=== PATIENT | male | born 1985 | race Caucasian/White ===

== ENCOUNTER → 2018-05-23 | Outpatient (CLI) | payer OTHER ==
--- NOTE | 2018-05-23 15:51 | PN ---
PROGRESS NOTE This is a 33-year-old male patient, a with known history of PTSD. The patient used to see Dr. Chen in the past and currently is under the care of Dr. Reed. The patient was diagnosed having obstructive sleep apnea with an AHI of 18.3, worse during REM sleep. This diagnosis was established by a sleep study that was done back in 05/2016. The patient was supposed to come in for a CPAP titration. However, he failed to do so. He is coming in after 2 years. He has lost some few pounds yet he has remained quite symptomatic. Currently going to school and studying IT work. He is also working in the [employer] business. Sometimes he struggles to stay awake. He does not fall asleep while driving unless he is driving long distances. Typically he says to drive around 5 to 10 minutes back and forth to work. He is going to bed around 11 p.m., waking up 7:00 am in the morning, very much tired and sleepy still. Clarkia score is at 8. No nocturnal chest pain. No nocturnal palpitations. No nocturnal heartburn. No edema in lower extremities. No other new onset medical problems since his last evaluation. He is known to have hypertension and he is currently on amlodipine and he is also taking olanzapine 5 mg for symptoms of PTSD. PAST MEDICAL HISTORY: Hypertension, PTSD, obesity and obstructive sleep apnea. SURGICAL HISTORY: Includes nasal surgery. DRUG ALLERGIES: PENICILLIN. OUTPATIENT MEDICATION LIST: Includes olanzapine 5 mg p.o. daily, Norvasc 5 mg p.o. daily. SOCIAL HISTORY: Nonsmoker. No history of alcohol. No history of IV drugs. REVIEW OF SYSTEMS: 12-point review of system was done. Positive findings are mentioned above in history of present illness. He has lost a few pounds. Used to weigh 329, currently is down to 314. Nevertheless he is still very much symptomatic regarding his obstructive sleep apnea. PHYSICAL EXAMINATION: BP 142/79, pulse 78, respirations 16, temperature 98.1, saturation 96% on room air. Height is 58 inches, weight is 314, Clarkia score is 8, BMI is 47.0. General appearance: Calm and comfortable. Head is atraumatic, normocephalic. NECK: Supple. There is no JVD. No goiter or neck masses. Mallampati class IV. LUNGS: Diminished breath sounds bilaterally, otherwise clear. HEART: Sounds regular rate and rhythm. Normal S1, S2. No S3. No murmurs. ABDOMEN: Soft, nontender. No organomegaly. EXTREMITIES: No edema. No cyanosis or clubbing. NEUROLOGIC: The patient is alert x3. No focal neurological deficits. PSYCHIATRIC: Negative for anxiety or depression. IMPRESSION: 1. Obstructive sleep apnea. Symptomatic. Based on the previous study from 2016, patient had an AHI of 18.3. 2. Hypersomnia, Clarkia score of 8. 3. Excessive fatigue likely secondary to obstructive sleep apnea. 4. Obesity, BMI of 47. 5. Loud snoring. 6. Hypertension. 7. Post traumatic stress disorder, currently on olanzapine. PLAN: 1. Proceed with CPAP titration regarding obstructive sleep apnea. 2. Encourage weight loss. 3. Implement good sleep hygiene measures. 4. See me back after completion of the CPAP titration for further advice and further adjustments. MMODL / IJN: [id number] /
== END | disposition home or self-care (01) ==
LOC: SLEEP 14:46
PROVIDERS: ATTEND Internal Medicine Critical Care Medicine
DX: Z53.9 Procedure and treatment not carried out, unspecified reason (principal)

== ENCOUNTER 2018-06-19 16:23 | Emergency (ER) | payer BC ==
[2018-06-19] MEDS ORDERED: KETOROLAC 30 MG/ML 1 ML VIAL IM STA (17:04)
--- NOTE | 2018-06-19 17:04 | ED ---
Back Pain HPI - General Chief Complaint: Back Pain/Injury Stated Complaint: Kidney pain Time Seen by Provider: 06/19/18 16:43 Source: patient Limitations: no limitations - History of Present Illness Initial Comments: 32-year-old male with past medical history of hypertension presented for chief complaint of one week of right-sided back pain. Patient states that last week when he initially began having the right-sided back pain he thought it was from moving heavy objects. The pain begins in the low to mid back radiating down towards the right leg. Patient had one episode of pink-colored urine on Tuesday which she was concerned for blood. Patient states that he has felt nauseated due to the pain. Patient states that the pain fluctuates in intensity , as worse in the morning and as the day progresses it gets better. He did note that he was lifting and twisting at work yesterday moving 10 pound objects which intensified the pain to 10 out of 10 sharp pain. Patient denies urgency, frequency, fever, chills, IV drug use, loss of bowel bladder control, urinary retention, groin pain, chest pain, shortness of breath. Denies hx of renal stones or cancer. Remainder of ROS (-). - Related Data Home Medications Medication Instructions Recorded Confirmed Ergocalciferol [Vitamin D2] 50,000 unit PO TU 06/19/18 06/19/18 OLANZapine [ZyPREXA] 5 mg PO HS 06/19/18 06/19/18 Omeprazole [PriLOSEC] 20 mg PO DAILY PRN 06/19/18 06/19/18 amLODIPine [Norvasc] 5 mg PO HS 06/19/18 06/19/18 Allergies Allergy/AdvReac Type Severity Reaction Status Date / Time Penicillins Allergy Rash/Hives Verified 06/19/18 16:38 Review of Systems ROS Statement: Those systems with pertinent positive or pertinent negative responses have been documented in the HPI. ROS Other: All systems not noted in ROS Statement are negative. Constitutional: Denies: fever, chills, night sweats Eyes: Denies: vision change ENT: Denies: ear pain, throat pain Respiratory: Denies: cough, dyspnea, wheezes, hemoptysis, stridor Cardiovascular: Denies: chest pain, palpitations, dyspnea on exertion Gastrointestinal: Reports: nausea (pt states he experienced nausea 1x due to the pain). Denies: abdominal pain, vomiting, diarrhea, constipation, hematemesis, melena Genitourinary: Reports: hematuria (pink colored urine on tuesday). Denies: urgency, dysuria, frequency, testicular pain Musculoskeletal: Reports: back pain (right sided mid-low back pain) Skin: Denies: rash Past Medical History Past Medical History: GERD/Reflux History of Any Multi-Drug Resistant Organisms: None Reported Additional Past Surgical History / Comment(s): Nasal sx. Past Psychological History: PTSD Smoking Status: Never smoker Past Alcohol Use History: Occasional Past Drug Use History: None Reported General Exam - General Exam Comments Initial Comments: General: The patient is awake and alert, in no distress, and does not appear acutely ill. Eye: Pupils are equal, round and reactive to light, extra-ocular movements are intact. No nystagmus. There is normal conjunctiva bilaterally. No signs of icterus. Ears, nose, mouth and throat: There are moist mucous membranes and no oral lesions. Neck: The neck is supple, there is no tenderness or JVD. Cardiovascular: There is a regular rate and rhythm. No murmur, rub or gallop is appreciated. Respiratory: Lungs are clear to auscultation, respirations are non-labored, breath sounds are equal. No wheezes, stridor, rales, or rhonchi. Gastrointestinal: Soft, non-distended, non-tender abdomen without masses or organomegaly noted. There is no rebound or guarding present. No CVA tenderness. Bowel sounds are unremarkable. Musculoskeletal: Normal inspection of the lumbar spine. Normal ROM at the lumbar spine with forward flexion, extension, lateral flexion and rotation, pt complains of pain with all movements. Strength 5/5 of the LE equally b/l. Sensation intact of the LE equally b/l. Radial and DP pulses equal bilaterally 2 +. (+) right SLR. Paravertbral tenderness of the lumbar spine R > L. Neurological: A&O x 3. CN II-XII intact, There are no obvious motor or sensory deficits. Coordination appears grossly intact. Speech is normal. Skin: Skin is warm and dry and no rashes or lesions are noted. Psychiatric: Cooperative, appropriate mood & affect, normal judgment. Limitations: no limitations Course Vital Signs 06/19/18 16:36 Temperature 98.2 F Pulse Rate 87 Respiratory 18 Rate Blood Pressure 152/84 O2 Sat by Pulse 98 Oximetry Medical Decision Making - Medical Decision Making 32yo with hx concerning for low back strain with sciatic vs kidney stone. PE as noted above. (+) right SLR, no signs concerning for cauda equina. No CVA tenderness. UA has calcium oxalate crystals concerning for kidney stone. CT and KUB (-). At this time At this time I feel pt pain is caused by kidney stone that has passed, as well as possible low back strain given location of pain, increase pain with movement and (+) SLR. Patient is no history of trauma to the back concerning for osseous injury. No IVDU, no hx cancer. Case discussed with Dr. Peña who agreed with impression and plan. Pt instructed to rest back, apply ice and heat to the area. In addition pt was given urology f/u regarding kidney stone. Pt agreed with plan, denied questions at this time. Return parameters discussed in detail. Pt discharged in stable condition. - Lab Data Result diagrams: 06/19/18 17:10 06/19/18 17:10 Lab Results 06/19/18 06/19/18 06/19/18 Range/Units 17:10 17:10 17:10 WBC 8.0 (3.8-10.6) k/uL RBC 4.70 (4.30-5.90) m/uL Hgb 14.0 (13.0-17.5) gm/dL Hct 40.9 (39.0-53.0) % MCV 86.9 (80.0-100.0) fL MCH 29.7 (25.0-35.0) pg MCHC 34.2 (31.0-37.0) g/dL RDW 12.5 (11.5-15.5) % Plt Count 247 (150-450) k/uL Neutrophils % 57 % Lymphocytes % 31 % Monocytes % 6 % Eosinophils % 3 % Basophils % 1 % Neutrophils # 4.6 (1.3-7.7) k/uL Lymphocytes # 2.5 (1.0-4.8) k/uL Monocytes # 0.5 (0-1.0) k/uL Eosinophils # 0.3 (0-0.7) k/uL Basophils # 0.1 (0-0.2) k/uL Sodium 141 (137-145) mmol/L Potassium 3.8 (3.5-5.1) mmol/L Chloride 107 (98-107) mmol/L Carbon Dioxide 26 (22-30) mmol/L Anion Gap 8 mmol/L BUN 13 (9-20) mg/dL Creatinine 0.76 (0.66-1.25) mg/dL Est GFR (CKD-EPI)AfAm >90 (>60 ml/min/1.73 sqM) Est GFR (CKD-EPI)NonAf >90 (>60 ml/min/1.73 sqM) Glucose 88 (74-99) mg/dL Calcium 9.2 (8.4-10.2) mg/dL Total Bilirubin 0.6 (0.2-1.3) mg/dL AST 40 (17-59) U/L ALT 99 H (21-72) U/L Alkaline Phosphatase 81 (38-126) U/L Total Protein 7.5 (6.3-8.2) g/dL Albumin 4.1 (3.5-5.0) g/dL Urine Color Yellow Urine Appearance Cloudy (Clear) Urine pH 8.0 (5.0-8.0) Ur Specific [place] 1.019 (1.001-1.035) Urine Protein Trace H (Negative) Urine Glucose (UA) Negative (Negative) Urine Ketones Negative (Negative) Urine Blood Negative (Negative) Urine Nitrite Negative (Negative) Urine Bilirubin Negative (Negative) Urine Urobilinogen 3.0 (<2.0) mg/dL Ur Leukocyte Esterase Negative (Negative) Ur Squamous Epith Cells <1 (0-4) /hpf Calcium Oxalate Crystal Rare H (None) /hpf Amorphous Sediment Rare H (None) /hpf Urine Bacteria Occasional H (None) /hpf Disposition Clinical Impression: Flank pain, Low back strain Disposition: HOME SELF-CARE Condition: Good Instructions: Kidney Stones (ED) Additional Instructions: Please use medication as discussed. Please follow-up with family doctor in the next 2 days. Please follow-up with urology in next week. Please return to emergency room if the symptoms increase or worsen or for any other concerns. Is patient prescribed a controlled substance at d/c from ED?: No Referrals: Fatmata Reed DO [Primary Care Provider] - 1-2 days Nelson Woodson MD [STAFF PHYSICIAN] - 1-2 days Time of Disposition: 19:09
[2018-06-19] MEDS ORDERED: KETOROLAC 30 MG/ML 1 ML VIAL IVP STA (17:27)
[2018-06-19 17:32] LABS: Basophils # (A) 0.1 k/uL (0-0.2); Basophils % (A) 1 %; Eosinophils # (A) 0.3 k/uL (0-0.7); Eosinophils % (A) 3 %; HCT 40.9 % (39.0-53.0); Lymphocytes # (A) 2.5 k/uL (1.0-4.8); Lymphocytes % (A) 31 %; MCH 29.7 pg (25.0-35.0); MCHC 34.2 g/dL (31.0-37.0); MCV 86.9 fL (80.0-100.0); Monocytes # (A) 0.5 k/uL (0-1.0); Monocytes % (A) 6 %; Neutrophils # (A) 4.6 k/uL (1.3-7.7); Neutrophils % (A) 57 %; Platelet Count 247 k/uL (150-450); RDW 12.5 % (11.5-15.5)
[2018-06-19 17:46] LABS: ALT 99 U/L (21-72); AST 40 U/L (17-59); Albumin 4.1 g/dL (3.5-5.0); Alkaline Phosphatase 81 U/L (38-126); Anion Gap 8 mmol/L; Blood Urea Nitrogen 13 mg/dL (9-20); Calcium 9.2 mg/dL (8.4-10.2); Carbon Dioxide 26 mmol/L (22-30); Chloride 107 mmol/L (98-107); Glucose 88 mg/dL (74-99); Potassium 3.8 mmol/L (3.5-5.1); Sodium 141 mmol/L (137-145); Total Bilirubin 0.6 mg/dL (0.2-1.3); Total Protein 7.5 g/dL (6.3-8.2)
[2018-06-19 17:48] LABS: Amorphous Sediment,Urine Rare /hpf; Appearance,Urine Cloudy (Clear); Bacteria,Urine Occasional /hpf; Bilirubin,Urine Negative (Negative); Blood,Urine Negative (Negative); Calcium Oxalate Crystals,Urine Rare /hpf; Color,Urine Yellow; Glucose,Urine (UA) Negative (Negative); Ketones,Urine Negative (Negative); Leukocyte Esterase,Urine Negative (Negative); Nitrite,Urine Negative (Negative); Protein,Urine Trace (Negative); Specific Gravity,Urine 1.019 (1.001-1.035); Squamous Epithelial Cell,Urine <1 /hpf (0-4)
--- NOTE | 2018-06-19 17:49 | XR ---
EXAMINATION TYPE: XR KUB DATE OF EXAM: 06/19/2018 COMPARISON: 12/02/2012 HISTORY: Right flank pain TECHNIQUE: 2 views upright FINDINGS: Lung bases are clear. Bowel gas pattern is normal. There is no sign of intestinal obstructi on or pneumoperitoneum. Fecal pattern is normal. There are no pathologic calcifications. There is sli ght lumbar levoscoliosis. IMPRESSION: Nonacute abdomen. No change.
--- NOTE | 2018-06-19 19:00 | CT ---
EXAMINATION TYPE: CT abdomen pelvis wo con DATE OF EXAM: 06/19/2018 COMPARISON: 12/03/2012 HISTORY: RIGHT FLANK PAIN CT DLP: 1383 mGycm Automated exposure control for dose reduction was used. TECHNIQUE: Helical acquisition of images was performed from the lung bases through the pelvis. FINDINGS: Lung bases are clear. There is no pleural effusion. There is no pericardial effusion. Liver spleen pa ncreas gallbladder appear normal. Bile ducts are not dilated. Stomach appears normal. There is no adrenal mass. Kidneys have normal size and contour. There is no hydronephrosis. Ureters a re not dilated. There is no retroperitoneal adenopathy. There is no mesenteric adenopathy or edema. T here is no inguinal hernia. Bladder distends smoothly. There is no evidence of a pelvic mass. Appendi x appears normal. I see no intestinal wall thickening. There are no dilated loops. Lumbar spine is intact. The bony pel vis appears intact. IMPRESSION: NEGATIVE CT SCAN OF THE ABDOMEN AND PELVIS. NO RENAL STONE OR OBSTRUCTION. NORMAL APPENDIX.
[2018-06-19 19:23] VITALS: BP 150/74; PULSE 91; RESP 20; TEMP 97.4
== END 2018-06-19 19:23 | disposition home or self-care (01) ==
LOC: EC 16:23
DX: S39.012A Strain of muscle, fascia and tendon of lower back, initial encounter (principal); R10.9 Unspecified abdominal pain; R11.0 Nausea; I10 Essential (primary) hypertension; K21.9 Gastro-esophageal reflux disease without esophagitis; Z79.899 Other long term (current) drug therapy; Z88.0 Allergy status to penicillin; X50.0XXA Overexertion from strenuous movement or load, initial encounter; X50.1XXA Overexertion from prolonged static or awkward postures, initial encounter; Y92.69 Other specified industrial and construction area as the place of occurrence of the external cause; Y99.0 Civilian activity done for income or pay
CPT/HCPCS: 36415; 80053; 85025; 81001; 74018; 74176; 99284; 96374; J1885

== ENCOUNTER → 2018-09-05 | Outpatient (CLI) | payer BC ==
--- NOTE | 2018-09-05 17:51 | PN ---
PROGRESS NOTE Clemente is doing extremely well and is coming in today for a compliancy check. The patient was diagnosed having obstructive sleep apnea AHI of 12 consistent with moderately severe disease and was given CPAP at a pressure of 10 cm of water. He is sleeping much better. He is using his CPAP every night without any interruption. His sleep quality is improved and he is waking up alert and refreshed during the day. No complaints whatsoever. He is using an Megan full face mask. He has gained about 5 pounds since his last evaluation. On today's compliance check, the patient is averaging around 8.1 hours of CPAP use per night and his CPAP use for more than 4 hours 95%. Leak is around 12 L/minute. AHI is down to 1.0. His [place] score is down to 2. No complaints whatsoever. REVIEW OF SYSTEMS: 12-point review of system was done. Positive findings are mentioned above in the history of present illness. He is gaining weight. He has gained around 5 pounds. No hypersomnia or sleepiness. No falling asleep while driving. No sleep paralysis. No hallucinations. No cataplexy. No anxiety. No depression. No panic attacks. No nocturnal heartburn, shortness of breath or chest pain. PHYSICAL EXAMINATION: VITAL SIGNS: BP is 126/80, pulse 74, respirations 18, temperature 97.4, saturation 97% on room air. Weight is 234. GENERAL APPEARANCE: Calm, comfortable, obese. HEENT: Head is atraumatic, normocephalic. NECK: Supple. No JVD. No goiter or neck masses. LUNGS: Diminished otherwise clear. HEART: Sounds regular rhythm. Normal S1, S2. No S3, S4, no murmurs. ABDOMEN: Soft, nontender. No organomegaly. EXTREMITIES: No edema. No cyanosis or clubbing. NEUROLOGIC: Alert and oriented x3. No focal neurological deficits. PSYCHIATRIC: Negative for anxiety or depression. IMPRESSION: 1. Obstructive sleep apnea symptomatic moderate in severity. AHI of 18, currently on CPAP pressure of 10. 2. Hypersomnia, recovered. 3. Snoring recovered. 4. Obesity with interval weight gain. Current BMI is 50.4. PLAN: 1. Encourage weight loss. 2. Continue CPAP pressure of 10 cm of water. 3. Use Megan View full-face mask. I also offered this patient a Enabled EmploymentWear full face mask that can be used in alternation with the Megan View and DreamWear fullface mask is of a small size. 4. Implement good sleep hygiene measures. 5. See me back in a year's time in follow up. Treatment is successful and the patient is benefitting from the treatment. MMELIZABETH / IJN: [id number] /
== END | disposition home or self-care (01) ==
LOC: SLEEP 16:46
PROVIDERS: ATTEND Internal Medicine Critical Care Medicine
DX: G47.33 Obstructive sleep apnea (adult) (pediatric) (principal); E66.9 Obesity, unspecified; Z68.43 Body mass index [BMI] 50.0-59.9, adult; Z99.89 Dependence on other enabling machines and devices

== ENCOUNTER 2019-06-23 18:49 | Emergency (ER) | payer BC ==
[2019-06-23 18:54] VITALS: BP 136/84; PULSE 72; RESP 18; TEMP 98.3
--- NOTE | 2019-06-23 19:17 | XR ---
EXAMINATION TYPE: XR hand complete RT DATE OF EXAM: 06/23/2019 COMPARISON: 09/08/2013 HISTORY: Pain, injury punching door TECHNIQUE: Right hand is examined in 3 projections. FINDINGS: There is a transverse fracture of the mid diaphyseal fifth metacarpal. There is anterior an gulation of the distal fracture fragment. Soft tissue swelling is present. Remaining osseous structures are intact. Joint spaces are preserved. IMPRESSION: 1. Mid diaphyseal fifth metacarpal fracture.
--- NOTE | 2019-06-23 19:34 | ED ---
Upper Extremity HPI - General Chief Complaint: Extremity Injury, Upper Stated Complaint: rt hand injury Time Seen by Provider: 06/23/19 18:55 Source: patient Mode of arrival: ambulatory Limitations: no limitations - History of Present Illness Initial Comments: Patient is a 33-year-old male presenting to the emergency Department with complaints of right hand pain after accidentally hitting a wall. Patient states he was playing with his family in mid-December hitting them when they moved and he had a wall instead. Patient states he has fractured his right fifth metacarpal for approximately 10 years ago. Patient states the pain feels similar. Patient is having swelling over the area. He is controlled at this time. Patient has no other complaints at this time. Patient denies fever or chills. Upon arrival to ER, vital signs are stable. - Related Data Home Medications Medication Instructions Recorded Confirmed Ergocalciferol [Vitamin D2] 50,000 unit PO TU 06/19/18 07/05/18 OLANZapine [ZyPREXA] 5 mg PO HS 06/19/18 07/05/18 Omeprazole [PriLOSEC] 20 mg PO DAILY PRN 06/19/18 07/05/18 amLODIPine [Norvasc] 10 mg PO HS 07/05/18 07/05/18 Allergies Allergy/AdvReac Type Severity Reaction Status Date / Time Penicillins Allergy Rash/Hives Verified 06/23/19 18:54 Review of Systems ROS Statement: Those systems with pertinent positive or pertinent negative responses have been documented in the HPI. ROS Other: All systems not noted in ROS Statement are negative. Past Medical History Past Medical History: GERD/Reflux, Hypertension, Musculoskeletal Disorder, Sleep Apnea/CPAP/BIPAP Additional Past Medical History / Comment(s): Blood in stools; uses CPAP; Back pain History of Any Multi-Drug Resistant Organisms: None Reported Past Surgical History: No Surgical Hx Reported Additional Past Surgical History / Comment(s): Nasal sx.; wisdom teeth Past Anesthesia/Blood Transfusion Reactions: No Reported Reaction Past Psychological History: PTSD Smoking Status: Never smoker Past Alcohol Use History: Rare Past Drug Use History: None Reported - Past Family History Mother Family Medical History: No Reported History General Exam - General Exam Comments Initial Comments: GENERAL: Well-appearing, well-nourished and in no acute distress. HEAD: Atraumatic, normocephalic. EYES: Pupils equal round and reactive to light, extraocular movements intact, sclera anicteric, conjunctiva are normal. NECK: Normal range of motion, supple without lymphadenopathy or JVD. LUNGS: Breath sounds clear to auscultation bilaterally and equal. No wheezes rales or rhonchi. HEART: Regular rate and rhythm without murmurs, rubs or gallops. EXTREMITIES: Patient has pain with palpation over the fifth metacarpal on the right hand, there is obvious swelling over the same area. Patient has full range of motion of the right hand and fingers. Patient is neurovascular intact. PSYCH: Normal mood, normal affect. SKIN: Warm, Dry, normal turgor, no rashes or lesions noted. Limitations: no limitations Course Vital Signs 06/23/19 18:51 Temperature 98.3 F Pulse Rate 72 Respiratory 18 Rate Blood Pressure 136/84 O2 Sat by Pulse 96 Oximetry Procedures - Orthopedic Splinting/Casting Injury #1 Side: right Upper Extremity Injury Location: short arm, hand Medical Decision Making - Medical Decision Making Patient is a 33-year-old male presenting to emergency Department with complaints of right hand pain after accidentally hitting a wall. X-rays reveal a mid diaphyseal fifth metacarpal fracture with slight anterior angulation of the distal fracture fragment. Patient was placed in a short arm splint and will follow up with orthopedics on Tuesday. Patient is in agreement with this plan of care. Patient is stable for discharge at this time. Case discussed with Dr. Tijerina. Disposition Clinical Impression: Fracture of fifth metacarpal bone of right hand Disposition: HOME SELF-CARE Condition: Stable Instructions (If sedation given, give patient instructions): Boxer Fracture (ED) Additional Instructions: Please return to the Emergency Department if symptoms worsen or any other concerns. Keep splint place until follow-up with orthopedics. Take Tylenol or Motrin for pain relief. May use ice over the hand as well. Is patient prescribed a controlled substance at d/c from ED?: No Referrals: Fatmata Reed DO [Primary Care Provider] - 1-2 days Grzegorz Pradhan MD [Medical Doctor] - 1-2 days
== END 2019-06-23 19:42 | disposition home or self-care (01) ==
LOC: EC 18:49
DX: S62.396A Other fracture of fifth metacarpal bone, right hand, initial encounter for closed fracture (principal); F43.10 Post-traumatic stress disorder, unspecified; K21.9 Gastro-esophageal reflux disease without esophagitis; I10 Essential (primary) hypertension; G47.30 Sleep apnea, unspecified; Z79.899 Other long term (current) drug therapy; Z88.0 Allergy status to penicillin; Z99.89 Dependence on other enabling machines and devices; W22.09XA Striking against other stationary object, initial encounter; Y93.89 Activity, other specified; Y92.009 Unspecified place in unspecified non-institutional (private) residence as the place of occurrence of the external cause
CPT/HCPCS: 29125; 99283

== ENCOUNTER → 2019-09-18 | Outpatient (CLI) | payer BC ==
--- NOTE | 2019-09-18 18:05 | PN ---
PROGRESS NOTE Clemente is 34, coming in for an annual check regarding obstructive sleep apnea. He has mild REBECCA with an AHI of 12 and he is on a CPAP pressure of 12. Doing well. No specific complaints. Utilizing his machine all the time. I had offered this patient a DreamWear [id number] mask and he found the mask very comfortable and he is willing to continue the same mask interface for the time being. No significant weight loss or weight gain. His body weight is up by only a few pounds since his last evaluation. He continues to wear his CPAP every night. He is compliant. He is averaging more than 4 hours. He is waking up refreshed and alert during the day. No other new-onset medical problems or comorbidities, and his condition has been essentially stable. MEDICATION: Includes Synthroid 100 mcg p.o. daily, Norvasc 10 mg p.o. daily, olanzapine 5 mg p.o. at bedtime. PHYSICAL EXAMINATION: VITAL SIGNS: BP is 121/73, pulse 82, respiratory rate 16, temperature 98.0, saturation 95% on room air. Height is 5 feet 9 inches and weight is 339. BMI is 50. GENERAL APPEARANCE: Calm, comfortable. HEAD: Atraumatic, normocephalic. NECK: Supple. No JVD. No goiter or neck masses. Mallampati class IV. LUNGS: Clear to auscultation. HEART: Heart sounds are regular rate and rhythm. Normal S1, S2. No S3, S4. No murmurs. ABDOMEN: Soft, nontender. No organomegaly. EXTREMITIES: No edema. No cyanosis or clubbing. IMPRESSION: 1. Obstructive sleep apnea with apnea/hypopnea index of 12, successfully treated with a CPAP pressure of 10 cm of water. 2. Hypersomnia, improved. 3. Obesity, stable, with a body mass index of 50. PLAN: 1. Continue CPAP at the same level of pressure. 2. Renew the patient's DreamWear full-face mask, medium size. 3. Encourage weight loss. 4. Treatment is successful. See me back in a year's time in followup, earlier if needed. No other changes from my standpoint on today's evaluation. MMODL / IJN: [id number] /
== END | disposition home or self-care (01) ==
LOC: SLEEP 15:28
PROVIDERS: ATTEND Internal Medicine Critical Care Medicine
DX: G47.33 Obstructive sleep apnea (adult) (pediatric) (principal); E66.9 Obesity, unspecified; Z68.43 Body mass index [BMI] 50.0-59.9, adult; Z99.89 Dependence on other enabling machines and devices; Z79.899 Other long term (current) drug therapy

== ENCOUNTER → 2020-10-29 | Outpatient (CLI) | payer BC ==
[2020-10-29 16:05] VITALS: BP 167/98; PULSE 88; RESP 18; TEMP 97.9; BMI 51.8
--- NOTE | 2020-10-29 16:14 | P.HPBAR ---
Bariatric H&P - History & Physicial H&P Date: 10/29/20 History & Physicial: Visit/CC: initial visit Patient initial contact: Initial weight: Initial weight in pounds: Height: 5 ft 9 in Initial BMI: Last weight: Current weight: 159.302 kg Current weight in pounds: 351.20 Current BMI: 51.8 [place] body weight (based on NIH guidelines): 72.575 kg Excess body weight loss: The patient is a 35 year-old M who presents for Bariatric Assessment. He is looking to bariatric procedure. Highest weight is present. Has mother with trouble with weight. No stomach or esophageal cancer. In the past he had heart burn up to 3 years. He still has his gallbladder. He uses CPAP machine. No surg eries to the abdomen. He had a scope check many years ago. He has lower back pain. He was in the . He reports of osteoarthritis of his knees. He is on disability. No easy bruising. Past Medical History Past Medical History: GERD/Reflux, Hypertension, Musculoskeletal Disorder, Sleep Apnea/CPAP/BIPAP Additional Past Medical History / Comment(s): Blood in stools; uses CPAP; Back pain History of Any Multi-Drug Resistant Organisms: None Reported Past Surgical History: No Surgical Hx Reported Additional Past Surgical History / Comment(s): Nasal sx.; wisdom teeth Past Anesthesia/Blood Transfusion Reactions: No Reported Reaction Past Psychological History: PTSD Smoking Status: Never smoker Past Alcohol Use History: Rare Past Drug Use History: None Reported - Past Family History Mother Family Medical History: No Reported History Surgical - Exam Vital Signs Temp Pulse Resp BP 97.9 F 88 18 167/98 10/29/20 15:56 10/29/20 15:56 10/29/20 15:56 10/29/20 15:56 Bariatric Checklist Checklist: Plan: Checklist: EGD: 1. Hiatal hernia: 2. H. Pylori: HgbA1c: Vitamin D: Smoking: Never smoker Primary care physician referral: Dr. Fatmata Reed Psychiatry clearance: Cardiology clearance: Sleep study: Diet journal: VTE risk score: VTE risk level: Rehab needs at discharge:
== END ==
LOC: BARWHC3 15:33
PROVIDERS: ATTEND Surgery Plastic and Reconstructive Surgery
DX: E66.01 Morbid (severe) obesity due to excess calories (principal); Z68.43 Body mass index [BMI] 50.0-59.9, adult; K21.9 Gastro-esophageal reflux disease without esophagitis; I10 Essential (primary) hypertension
CPT/HCPCS: 99211

== ENCOUNTER → 2020-11-11 | Outpatient (CLI) | payer BC ==
[2020-11-12 00:54] LABS: HCT 42.1 % (39.6-50.0); HGB 14.4 g/dL (13.0-17.0); MCH 30.3 pg (27.0-32.0); MCHC 34.2 g/dL (32.0-37.0); MCV 88.4 fL (80.0-97.0); Platelet Count 214 X 10*3/uL (140-440); RBC 4.76 X 10*6/uL (4.40-5.60); RDW 12.6 % (11.5-14.5); WBC 7.21 X 10*3/uL (4.50-10.00)
[2020-11-12 03:06] LABS: INR 0.94 (0.90-1.11); Partial Thromboplastin Time 25.9 sec (23.5-31.0); Prothrombin Time 10.3 sec (9.9-11.9)
[2020-11-12 09:19] LABS: Folate, Serum 9.1 ng/mL
[2020-11-12 09:29] LABS: % Iron Saturation 18.71 (15.00-50.00); African American GFR (CKD) 127.8 (60.0-200.0); Albumin 4.6 g/dL (3.80-4.90); Albumin/Globulin Ratio 1.64 (1.60-3.17); Anion Gap 10.8 mmol/L (4.00-12.00); BUN/Creat Ratio 12.22 Ratio (12.00-20.00); Calcium 9.8 mg/dL (8.7-10.3); Carbon Dioxide 25.2 mmol/L (21.6-31.8); Chol/HDL Ratio 4.73; Ferritin 321.3 ng/mL (22.0-322.0); Globulin 2.8 g/dL (1.6-3.3); LDL Cholesterol,Calculated 108.6 mg/dL (0.0-131.0); Magnesium 1.7 mg/dL (1.5-2.4); Non-African American GFR(CKD) 110.3 (60.0-200.0); Phosphorus 3.4 mg/dL (2.4-5.1); Potassium 3.8 mmol/L (3.5-5.5); Total Bilirubin 0.4 mg/dL (0.3-1.2); Total Protein 7.4 g/dL (6.2-8.2); VLDL Calculation 55.4 mg/dL (5.00-40.00)
[2020-11-12 14:17] LABS: Zinc, Serum 48 ug/dL (60-130)
[2020-11-13 08:06] LABS: Vitamin A 40 ug/dL (38-106)
[2020-11-14 01:13] LABS: Selenium 134 mcg/L (63-160)
[2020-11-14 11:03] LABS: Vit B1(Thiamine) 69 ug/L (38-122)
== END | disposition home or self-care (01) ==
LOC: LABWHC1 15:35
PROVIDERS: ATTEND Surgery Plastic and Reconstructive Surgery
DX: K74.1 Hepatic sclerosis (principal); K90.89 Other intestinal malabsorption; E55.9 Vitamin D deficiency, unspecified; N19 Unspecified kidney failure; K50.90 Crohn's disease, unspecified, without complications; D50.8 Other iron deficiency anemias; E89.1 Postprocedural hypoinsulinemia; E66.01 Morbid (severe) obesity due to excess calories
CPT/HCPCS: 36415; 80053; 80061; 82306; 82525; 82607; 82728; 82746; 83036; 83540; 83550; 83735; 83970; 84100; 84134; 84255; 84425; 84443; 84590; 84630; 85027; 85610; 85730; 93005

== ENCOUNTER → 2020-11-18 | Outpatient (CLI) | payer BC | END | disposition home or self-care (01) | LOC: LABWHC1 13:30 | PROVIDERS: ATTEND Surgery Plastic and Reconstructive Surgery | DX: K90.89 Other intestinal malabsorption (principal); E44.0 Moderate protein-calorie malnutrition; D50.8 Other iron deficiency anemias; E55.9 Vitamin D deficiency, unspecified; K74.1 Hepatic sclerosis; N19 Unspecified kidney failure | CPT/HCPCS: 93005 ==

== ENCOUNTER → 2020-12-08 | Day surgery (SDC) | payer BC ==
[2020-12-03 14:56] VITALS: BMI 51.8
[~2020-12-08] MED LIST: KETAMINE 10 MG/ML 20 ML VIAL ONE; LACTATED RINGERS 1,000 ML IV SCH; LIDOCAINE 1% (10MG/ML) FOR IV START INTRADERMA PRN; LIDOCAINE 1% INJ 10MG/ML (20 ML MDV) ONE; MIDAZOLAM 2 MG/2 ML VIAL ONE; PROPOFOL 10 MG/ML 20 ML VIAL IV ONE
[2020-12-08 06:59] VITALS: RESP 18; TEMP 97
--- NOTE | 2020-12-08 07:40 | P.GSHP ---
History of Present Illness H&P Date: 12/08/20 CHIEF COMPLAINT: GERD HISTORY OF PRESENT ILLNESS: The patient is a 35-year-old male who presents reports gastroesophageal reflux disease. Upper endoscopy was offered for further evaluation and management. PAST MEDICAL HISTORY: Please see list. PAST SURGICAL HISTORY: Please see list. MEDICATIONS: Please see list. ALLERGIES: Please see list. SOCIAL HISTORY: No illicit drug use FAMILY HISTORY: No reports of Crohn disease or ulcerative colitis. REVIEW OF ORGAN SYSTEMS: CONSTITUTIONAL: No reports of fevers or chills. GI: Denies any blood in stools or constipation. PHYSICAL EXAM: VITAL SIGNS: Stable GENERAL: Well-developed and pleasant in no acute distress. HEENT: No scleral icterus. Extraocular movements grossly intact. Moist buccal mucosa. NECK: Supple without lymphadenopathy. CHEST: Unlabored respirations. Equal bilateral excursions. CARDIOVASCULAR: Regular rate and rhythm. Distal 2+ pulses. ABDOMEN: Soft, nondistended. MUSCULOSKELETAL: No clubbing, cyanosis, or edema. ASSESSMENT: 1. Gastroesophageal reflux disease PLAN: 1. Recommend proceeding with an upper endoscopy Past Medical History Past Medical History: GERD/Reflux, Hypertension, Musculoskeletal Disorder, Sleep Apnea/CPAP/BIPAP Additional Past Medical History / Comment(s): Blood in stools; uses CPAP; Back pain History of Any Multi-Drug Resistant Organisms: None Reported Past Surgical History: No Surgical Hx Reported Additional Past Surgical History / Comment(s): Nasal sx.; wisdom teeth, EGD, Past Anesthesia/Blood Transfusion Reactions: No Reported Reaction Smoking Status: Never smoker - Past Family History Mother Family Medical History: No Reported History Medications and Allergies Home Medications Medication Instructions Recorded Confirmed Type Losartan Potassium 50 mg PO DAILY 12/03/20 12/08/20 History Allergies Allergy/AdvReac Type Severity Reaction Status Date / Time Penicillins Allergy Rash/Hives Verified 12/08/20 06:51 Surgical - Exam Vital Signs Temp Pulse Resp BP Pulse Ox 97.0 F L 77 18 176/86 98 12/08/20 06:55 12/08/20 06:55 12/08/20 06:55 12/08/20 06:55 12/08/20 06:55
--- NOTE | 2020-12-08 07:51 | P.PCN ---
Date of Procedure: 12/08/20 Description of Procedure: PREOPERATIVE DIAGNOSIS: Gastroesophageal reflux disease. Morbid obesity. POSTOPERATIVE DIAGNOSIS: Morbid obesity. Gastritis. Gastroesophageal reflux disease. OPERATION: Esophagogastroduodenoscopy with biopsies along antrum. SURGEON: Debra Reid MD ANESTHESIA: MAC. INDICATIONS: The patient is a 35-year-old male who presents with a history of reflux disease. Benefits and risks of the procedure were described. Informed consent was obtained. DESCRIPTION: The patient was brought into the endoscopy suite and laid in the left lateral decubitus position. An Olympus gastroscope was passed along the posterior oropharynx down to the distal esophagus where the squamocolumnar junction was encountered at 43 cm from the incisors. The stomach was entered and no bile reflux was found. Additional findings are listed below. Biopsies with cold forceps were obtained of the antrum. The first through third portion of the duodenum was examined and unremarkable. Retroflexion of the scope confirmed Hill grade 2 lower esophageal valve. The squamocolumnar junction demonstrated LA grade B erosive esophagitis. The stomach was desufflated. The patient tolerated the procedure well. FINDINGS: Squamocolumnar junction 43 cm from the incisors. Diaphragmatic hiatus at 43 cm. Hill grade 2 lower esophageal valve. LA grade B erosive esophagitis. No active duodenitis. Chronic gastritis RECOMMENDATIONS: Upper endoscopy as needed. Plan - Discharge Summary Discharge Rx Participant: No New Discharge Prescriptions: Continue Losartan Potassium 50 mg PO DAILY Discharge Medication List Losartan Potassium 50 mg PO DAILY 12/03/20 [History] [place] [facility]Ref[place] [facility] [place] [place] [facility] - [place]17[facility]20 Patient Instructions/Handouts: Gastritis (DC), Diet for Stomach Ulcers and Gastritis (ED) Discharge Disposition: HOME SELF-CARE
[2020-12-08 08:05] VITALS: BP 155/95; PULSE 83
== END | disposition home or self-care (01) ==
LOC: ORWHC2ENDO 06:37
PROVIDERS: ATTEND Surgery Plastic and Reconstructive Surgery
DX: K29.50 Unspecified chronic gastritis without bleeding (principal); K21.00 Gastro-esophageal reflux disease with esophagitis, without bleeding; I10 Essential (primary) hypertension; E66.01 Morbid (severe) obesity due to excess calories; G47.33 Obstructive sleep apnea (adult) (pediatric); F43.10 Post-traumatic stress disorder, unspecified; Z79.899 Other long term (current) drug therapy; Z88.0 Allergy status to penicillin; Z99.89 Dependence on other enabling machines and devices
CPT/HCPCS: 88305; 43239; J2250; J2001; J2704

== ENCOUNTER → 2020-12-17 | Outpatient (CLI) | payer BC ==
[2020-12-17 17:14] VITALS: BP 129/84; PULSE 86; RESP 16; TEMP 98.1; BMI 52.1
--- NOTE | 2020-12-17 17:46 | P.PN ---
Subjective Progress Note Date: 12/17/20 DATE OF SERVICE: 12/17/2020 CHIEF COMPLAINT: Morbid obesity HISTORY OF PRESENT ILLNESS: Clemente Atkins is a 35-year-old male who comes with lifelong morbid obesity. He is looking to gastrectomy procedure. As a result of his morbid obesity, he has developed hypertension, obstructive sleep apnea, osteoarthritis of the lower back, osteoarthritis of the hips, osteoarthritis of knees, osteoarthritis of the ankles. He has completed upper endoscopy. He is undergoing medical supervised weight loss. His completed psychological risk assessment. At height of 5 feet 9 inches, his ideal body weight is 168 pounds. He comes in 352 pounds from 350 pounds, 1 month ago. He has gained 2 pounds in 1 month. His body mass index is up to 52.1. He is 184 pounds overweight. PAST MEDICAL HISTORY: 1. Morbid obesity due to excess calories 2. Body mass index of 52.1 3. Post traumatic stress disorder 4. Gastroesophageal reflux disease 5. Hypertension 6. Obstructive sleep apnea 7. Osteoarthritis lower back 8. Osteoarthritis of the knees PAST SURGICAL HISTORY: 1. Nasal surgery HOME MEDICATIONS: Home Medications Medication Instructions Recorded Confirmed No Known Home Medications 10/29/20 10/29/20 ALLERGIES: Allergies Allergy/AdvReac Type Severity Reaction Status Date / Time Penicillins Allergy Rash/Hives Verified 10/29/20 16:19 SOCIAL HISTORY: No past tobacco use. FAMILY HISTORY: No family history of ulcerative colitis disease or Crohn's disease. Family history of morbid obesity. No lupus in the family. No reports of stomach or esophageal cancer. REVIEW OF ORGAN SYSTEMS: CONSTITUTIONAL: At height of 5 feet 9 inches, his ideal body weight is 168 pounds. He comes in 352 pounds from 350 pounds, 1 month ago. He has gained 2 pounds in 1 month. His body mass index is up to 52.1. He is 184 pounds overweight. HEENT: Denies any active troubles with vision or hearing. ENDOCRINE: No diabetes. No hypothyroidism. CARDIOVASCULAR: No past reports of palpitations or heart attacks or chest pain. Has hypertension. RESPIRATORY: Has daytime somnolence. Has asthma. Has sleep apnea. GASTROINTESTINAL: Past bright red blood per rectum. No diarrhea. No constipation. GENITOURINARY: No bladder urgency. No recent blood in urine MUSCULOSKELETAL: Has lower back pain and joint pain. Has osteoarthritis of the knees. NEURO: No headaches. No seizure disorders. PSYCH: Denies depression. No suicidal ideation. RHEUMATOLOGIC: No lupus. No rheumatoid arthritis. HEMATOLOGIC: Denies any abnormal bleeding or bruising. SKIN: No rash. No skin cancer. PHYSICAL EXAM: VITAL SIGNS: Height 5 foot 9 inches, weight 352 pounds. BMI 52.1 Vital Signs Temp 98.1 F 12/17/20 17:11 Pulse 86 12/17/20 17:11 Resp 16 12/17/20 17:11 BP 129/84 12/17/20 17:11 Pulse Ox GENERAL: Well-developed in no acute distress. HEENT: No scleral icterus. Extraocular movements grossly intact. Hears conversational speech. No nasal drainage. NECK: Supple without lymphadenopathy. CHEST: Nonlabored respirations with equal bilateral excursions. CARDIOVASCULAR: Regular rate and regular rhythm. Distal 2+ pulses. ABDOMEN: Obese, soft, nontender, nondistended. MUSCULOSKELETAL: No clubbing, cyanosis. NEURO: No focal or lateralizing signs. Cranial nerves 2 through 12 grossly within normal limits. PSYCH: Appropriate affect. Alert and oriented to person, place and time. SKIN: Good skin turgor. Well perfused. LABS: Iron is low, AST and ALT elevated. Triglycerides elevated, cholesterol is elevated, Vitamin D is low, Zinc is low EKG reviewed and is normal EGD FINDINGS: Squamocolumnar junction 43 cm from the incisors. Diaphragmatic hiatus at 43 cm. Hill grade 2 lower esophageal valve. LA grade B erosive esophagitis. No active duodenitis. Chronic gastritis Final Pathologic Diagnosis STOMACH, ANTRUM, BIOPSY: Mild chronic gastritis. No Helicobacter organisms seen on H+E staining. ASSESSMENT: 1. Morbid obesity due to excess calories 2. Body mass index of 52.1 3. Post traumatic stress disorder 4. Gastroesophageal reflux disease 5. Hypertension 6. Obstructive sleep apnea 7. Osteoarthritis lower back 8. Osteoarthritis of the knees 9. Iron deficiency 10. Elevated liver enzymes 11. Zinc deficiency 12. Vitamin D deficiency 13. Hypercholesterolemia 14. Hypertriglyceridemia PLAN: 1. Bariatric options between a sleeve, band and a Mohit-en-Y gastric bypass were reviewed in detail. The patient elected for gastric bypass. Robotic assisted approach described. 2. The [place] [facility] Data was also reviewed with benefits and risks as described. 3. An 8 page second-generation bariatric consent form was reviewed in detail including potential of bleeding, infection, leaks, adequate weight loss, nutritional deficiencies which the patient demonstrated understanding of the risks. 4. A 2 week high-protein low caloric 800 kcal diet described to address hepatomegaly. 5. Preoperative labs including complete metabolic panel and CBC with type and screen recommended. 6. DVT prophylaxis per [place] [facility]. 7. Antibiotic prophylaxis. 8. Inpatient hospitalization anticipated for more than 2 nights. 9. All questions and concerns were addressed with the patient. 10. Overall, patient has expressed understanding of bariatric care including postoperative diet and commitment of lifestyle. Patient should benefit from surgical intervention for correction of his morbid obesity. 11. Recommend correction of iron and vitamin D. 12. He is elevated risk of complications due to pre-existing sleep apnea. Objective - Vital Signs Vital signs: Vital Signs Temp 98.1 F 12/17/20 17:11 Pulse 86 12/17/20 17:11 Resp 16 12/17/20 17:11 BP 129/84 12/17/20 17:11 Pulse Ox Intake & Output 12/16/20 12/17/20 12/17/20 18:59 06:59 18:59 Weight 160.118 kg
== END ==
LOC: BARWHC3 15:51
PROVIDERS: ATTEND Surgery Plastic and Reconstructive Surgery
DX: E66.01 Morbid (severe) obesity due to excess calories (principal); K21.9 Gastro-esophageal reflux disease without esophagitis; F43.10 Post-traumatic stress disorder, unspecified; G47.33 Obstructive sleep apnea (adult) (pediatric); I10 Essential (primary) hypertension; M17.0 Bilateral primary osteoarthritis of knee; M47.9 Spondylosis, unspecified; E61.1 Iron deficiency; E55.9 Vitamin D deficiency, unspecified; E78.00 Pure hypercholesterolemia, unspecified; E78.1 Pure hyperglyceridemia; R94.5 Abnormal results of liver function studies; Z68.43 Body mass index [BMI] 50.0-59.9, adult; Z88.0 Allergy status to penicillin
CPT/HCPCS: 99211

== ENCOUNTER → 2021-01-21 | Outpatient (CLI) | payer BC ==
[2021-01-21 17:10] VITALS: BP 155/91; PULSE 89; RESP 18; TEMP 98.2; BMI 52.2
--- NOTE | 2021-04-19 21:47 | P.PN ---
Subjective Progress Note Date: 01/21/21 DATE OF SERVICE: 01/21/2021 CHIEF COMPLAINT: Morbid obesity HISTORY OF PRESENT ILLNESS: Clemente Atkins is a 35-year-old male who comes with lifelong morbid obesity. As a result of his morbid obesity, he has developed hypertension, obstructive sleep apnea, osteoarthritis of the lower back, osteoarthritis of the hips, osteoarthritis of knees, osteoarthritis of the ankles. He is looking into sleeve gastrectomy. At height of 5 feet 9 inches, his ideal body weight is 168 pounds. He comes in 353 pounds from 352 pounds, 1 month ago. He has gained 1 pounds in 1 month. His body mass index is up to 52.3. He is 185 pounds overweight. PAST MEDICAL HISTORY: 1. Morbid obesity due to excess calories 2. Body mass index of 52.1 3. Post traumatic stress disorder 4. Gastroesophageal reflux disease 5. Hypertension 6. Obstructive sleep apnea 7. Osteoarthritis lower back 8. Osteoarthritis of the knees PAST SURGICAL HISTORY: 1. Nasal surgery HOME MEDICATIONS: Home Medications Medication Instructions Recorded Confirmed No Known Home Medications 10/29/20 10/29/20 ALLERGIES: Allergies Allergy/AdvReac Type Severity Reaction Status Date / Time Penicillins Allergy Rash/Hives Verified 10/29/20 16:19 SOCIAL HISTORY: No past tobacco use. FAMILY HISTORY: No family history of ulcerative colitis disease or Crohn's disease. Family history of morbid obesity. No lupus in the family. No reports of stomach or esophageal cancer. REVIEW OF ORGAN SYSTEMS: CONSTITUTIONAL: At height of 5 feet 9 inches, his ideal body weight is 168 pounds. Highest 353 pounds, BMI 52.3. He comes in 352 pounds from 350 pounds, 1 month ago. He has gained 2 pounds in 1 month. His body mass index is up to 52.1. He is 184 pounds overweight. HEENT: Denies any active troubles with vision or hearing. ENDOCRINE: No diabetes. No hypothyroidism. CARDIOVASCULAR: No past reports of palpitations or heart attacks or chest pain. Has hypertension. RESPIRATORY: Has daytime somnolence. Has asthma. Has sleep apnea. GASTROINTESTINAL: Past bright red blood per rectum. No diarrhea. No constipation. GENITOURINARY: No bladder urgency. No recent blood in urine MUSCULOSKELETAL: Has lower back pain and joint pain. Has osteoarthritis of the knees. NEURO: No headaches. No seizure disorders. PSYCH: Denies depression. No suicidal ideation. RHEUMATOLOGIC: No lupus. No rheumatoid arthritis. HEMATOLOGIC: Denies any abnormal bleeding or bruising. SKIN: No rash. No skin cancer. PHYSICAL EXAM: VITAL SIGNS: Height 5 foot 9 inches, weight 353 pounds. BMI 52.3 Vital Signs Temp 98.2 F 01/21/21 17:05 Pulse 89 01/21/21 17:05 Resp 18 01/21/21 17:05 BP 155/91 01/21/21 17:05 Pulse Ox GENERAL: Well-developed in no acute distress. HEENT: No scleral icterus. Extraocular movements grossly intact. Hears conversational speech. No nasal drainage. NECK: Supple without lymphadenopathy. CHEST: Nonlabored respirations with equal bilateral excursions. CARDIOVASCULAR: Regular rate and regular rhythm. Distal 2+ pulses. ABDOMEN: Obese, soft, nontender, nondistended. MUSCULOSKELETAL: No clubbing, cyanosis. NEURO: No focal or lateralizing signs. Cranial nerves 2 through 12 grossly within normal limits. PSYCH: Appropriate affect. Alert and oriented to person, place and time. SKIN: Good skin turgor. Well perfused. ASSESSMENT: 1. Morbid obesity due to excess calories 2. Body mass index of 52.3 3. Post traumatic stress disorder 4. Gastroesophageal reflux disease 5. Hypertension 6. Obstructive sleep apnea 7. Osteoarthritis lower back 8. Osteoarthritis of the knees 9. Iron deficiency 10. Elevated liver enzymes 11. Zinc deficiency 12. Vitamin D deficiency 13. Hypercholesterolemia 14. Hypertriglyceridemia PLAN: 1. He is looking into the gastric bypass. Consent reviewed. 2. The [place] [facility] Data was also reviewed with benefits and risks as described. 3. An 8 page second-generation bariatric consent form was reviewed in detail including potential of bleeding, infection, leaks, adequate weight loss, nutritional deficiencies which the patient demonstrated understanding of the risks. 4. NSQIP risks described. 5. He is elevated risk with BMI over 50.0. Objective - Vital Signs Vital signs: Vital Signs Temp 98.2 F 01/21/21 17:05 Pulse 89 01/21/21 17:05 Resp 18 01/21/21 17:05 BP 155/91 01/21/21 17:05 Pulse Ox
== END ==
LOC: BARWHC3 16:21
PROVIDERS: ATTEND Surgery Plastic and Reconstructive Surgery
DX: E66.01 Morbid (severe) obesity due to excess calories (principal); E55.9 Vitamin D deficiency, unspecified; E78.00 Pure hypercholesterolemia, unspecified; E78.1 Pure hyperglyceridemia; F43.10 Post-traumatic stress disorder, unspecified; G47.33 Obstructive sleep apnea (adult) (pediatric); I10 Essential (primary) hypertension; K21.9 Gastro-esophageal reflux disease without esophagitis; M17.0 Bilateral primary osteoarthritis of knee; M47.9 Spondylosis, unspecified; E61.1 Iron deficiency; E60 Dietary zinc deficiency; R94.5 Abnormal results of liver function studies; Z68.43 Body mass index [BMI] 50.0-59.9, adult; Z88.0 Allergy status to penicillin
CPT/HCPCS: 99211

== ENCOUNTER → 2021-02-02 | Outpatient (CLI) | payer BC ==
[2021-02-02 11:34] VITALS: BMI 52.8
== END ==
LOC: BARWHC3 08:38
PROVIDERS: ATTEND Surgery Plastic and Reconstructive Surgery
DX: E66.01 Morbid (severe) obesity due to excess calories (principal); Z71.3 Dietary counseling and surveillance; Z88.0 Allergy status to penicillin; Z68.43 Body mass index [BMI] 50.0-59.9, adult
CPT/HCPCS: 97804

== ENCOUNTER → 2021-02-06 | Outpatient (CLI) | payer BC ==
--- NOTE | 2021-02-06 12:53 | US ---
EXAMINATION TYPE: US gallbladder DATE OF EXAM: 02/06/2021 COMPARISON: 06/19/2018 CLINICAL HISTORY: 35-year-old male R94.5 ABN LIVER FUNCTION TEST. Pre-op bariatric surgery TECHNIQUE: Multiple sonographic images of the right upper quadrant are obtained. FINDINGS: EXAM MEASUREMENTS: Liver Length: 19.8 cm Gallbladder Wall: 0.3 cm CBD: 0.5 cm Right Kidney: 13.1 x 5.7 x 5.4 cm Gis Scientist notes: Morbidly obese patient, technically difficult limited study. Pancreas: Obscured by bowel gas Liver: unable to penetrate, measures large, probable focal fatty sparing adjacent to gallbladder Gallbladder: wnl as seen, limited views Evidence for sonographic Pike's sign: No CBD: wnl Right Kidney: Slightly prominent in size. No hydronephrosis. IMPRESSION: 1. Technically limited exam as above. 2. Hepatomegaly (19.8 cm) with at least moderate hepatic steatosis. 3. No gallstones or biliary ductal dilatation.
== END | disposition home or self-care (01) ==
LOC: RADUSWWP 08:15
PROVIDERS: ATTEND Surgery Plastic and Reconstructive Surgery
DX: Z01.818 Encounter for other preprocedural examination (principal); R16.0 Hepatomegaly, not elsewhere classified; K76.0 Fatty (change of) liver, not elsewhere classified; E66.01 Morbid (severe) obesity due to excess calories
CPT/HCPCS: 76705

== ENCOUNTER → 2021-04-17 | Outpatient (CLI) | payer BC ==
[2021-04-17 09:42] LABS: Basophils # (A) 0.1 k/uL (0-0.2); Basophils % (A) 1 %; Eosinophils # (A) 0.2 k/uL (0-0.7); Eosinophils % (A) 3 %; HCT 43.4 % (39.0-53.0); HGB 15.1 gm/dL (13.0-17.5); Lymphocytes % (A) 34 %; MCH 31.3 pg (25.0-35.0); MCHC 34.7 g/dL (31.0-37.0); MCV 90.2 fL (80.0-100.0); Monocytes # (A) 0.3 k/uL (0-1.0); Monocytes % (A) 6 %; Neutrophils # (A) 3.2 k/uL (1.3-7.7); Neutrophils % (A) 55 %; Platelet Count 220 k/uL (150-450); RBC 4.81 m/uL (4.30-5.90); RDW 13.2 % (11.5-15.5); WBC 5.9 k/uL (3.8-10.6)
[2021-04-17 09:54] LABS: ALT 128 U/L (4-49); AST 68 U/L (17-59); African American GFR (CKD) >90 (>60 ml/min/1.73 sqM); Albumin 4.7 g/dL (3.5-5.0); Alkaline Phosphatase 72 U/L (38-126); Anion Gap 10 mmol/L; Blood Urea Nitrogen 17 mg/dL (9-20); Calcium 9.7 mg/dL (8.4-10.2); Carbon Dioxide 28 mmol/L (22-30); Chloride 101 mmol/L (98-107); Glucose 93 mg/dL (74-99); Non-African American GFR(CKD) >90 (>60 ml/min/1.73 sqM); Potassium 4.2 mmol/L (3.5-5.1); Sodium 139 mmol/L (137-145); Total Bilirubin 0.9 mg/dL (0.2-1.3); Total Protein 7.9 g/dL (6.3-8.2)
== END | disposition home or self-care (01) ==
LOC: LABPAT 08:34
PROVIDERS: ATTEND Surgery Plastic and Reconstructive Surgery
DX: Z01.812 Encounter for preprocedural laboratory examination (principal)
CPT/HCPCS: 36415; 80053; 85025

== ENCOUNTER 2021-04-27 12:36 | Inpatient (IN) | payer BC ==
--- NOTE | 2021-04-27 03:46 | P.GSHP ---
History of Present Illness H&P Date: 04/27/21 CHIEF COMPLAINT: Morbid obesity HISTORY OF PRESENT ILLNESS: Clemente Atkins is a 35-year-old male who comes with lifelong morbid obesity. As a result of his morbid obesity, he has developed hypertension, obstructive sleep apnea, osteoarthritis of the lower back, osteoarthritis of the hips, osteoarthritis of knees, osteoarthritis of the ankles. He has completed the requirements of the bariatric progem. He is looking into sleeve gastrectomy. At height of 5 feet 9 inches, his ideal body weight is 168 pounds. He comes in 336 pounds from 353 pounds, 3 month ago. He has lost 17 pounds in 3 months. His body mass index is up 49.8 He is 168 pounds overweight. PAST MEDICAL HISTORY: 1. Morbid obesity due to excess calories 2. Body mass index of 52.1 3. Post traumatic stress disorder 4. Gastroesophageal reflux disease 5. Hypertension 6. Obstructive sleep apnea 7. Osteoarthritis lower back 8. Osteoarthritis of the knees PAST SURGICAL HISTORY: 1. Nasal surgery HOME MEDICATIONS: Home Medications Medication Instructions Recorded Confirmed No Known Home Medications 10/29/20 10/29/20 ALLERGIES: Allergies Allergy/AdvReac Type Severity Reaction Status Date / Time Penicillins Allergy Rash/Hives Verified 10/29/20 16:19 SOCIAL HISTORY: No past tobacco use. FAMILY HISTORY: No family history of ulcerative colitis disease or Crohn's disease. Family history of morbid obesity. No lupus in the family. No reports of stomach or esophageal cancer. REVIEW OF ORGAN SYSTEMS: CONSTITUTIONAL: At height of 5 feet 9 inches, his ideal body weight is 168 pounds. Highest 353 pounds, BMI 52.3. He comes in 352 pounds from 350 pounds, 1 month ago. He has gained 2 pounds in 1 month. His body mass index is up to 52.1. He is 184 pounds overweight. HEENT: Denies any active troubles with vision or hearing. ENDOCRINE: No diabetes. No hypothyroidism. CARDIOVASCULAR: No past reports of palpitations or heart attacks or chest pain. Has hypertension. RESPIRATORY: Has daytime somnolence. Has asthma. Has sleep apnea. GASTROINTESTINAL: Past bright red blood per rectum. No diarrhea. No constipation. GENITOURINARY: No bladder urgency. No recent blood in urine MUSCULOSKELETAL: Has lower back pain and joint pain. Has osteoarthritis of the knees. NEURO: No headaches. No seizure disorders. PSYCH: Denies depression. No suicidal ideation. RHEUMATOLOGIC: No lupus. No rheumatoid arthritis. HEMATOLOGIC: Denies any abnormal bleeding or bruising. SKIN: No rash. No skin cancer. PHYSICAL EXAM: VITAL SIGNS: Height 5 foot 9 inches, weight 336 pounds. BMI 49.8 GENERAL: Well-developed in no acute distress. HEENT: No scleral icterus. Extraocular movements grossly intact. Hears conversational speech. No nasal drainage. NECK: Supple without lymphadenopathy. CHEST: Nonlabored respirations with equal bilateral excursions. CARDIOVASCULAR: Regular rate and regular rhythm. Distal 2+ pulses. ABDOMEN: Obese, soft, nontender, nondistended. MUSCULOSKELETAL: No clubbing, cyanosis. NEURO: No focal or lateralizing signs. Cranial nerves 2 through 12 grossly within normal limits. PSYCH: Appropriate affect. Alert and oriented to person, place and time. SKIN: Good skin turgor. Well perfused. ASSESSMENT: 1. Morbid obesity due to excess calories 2. Body mass index of 52.3 to 49.8 3. Post traumatic stress disorder 4. Gastroesophageal reflux disease 5. Hypertension 6. Obstructive sleep apnea 7. Osteoarthritis lower back 8. Osteoarthritis of the knees 9. Iron deficiency 10. Elevated liver enzymes 11. Zinc deficiency 12. Vitamin D deficiency 13. Hypercholesterolemia 14. Hypertriglyceridemia PLAN: 1. Bariatric options between a sleeve, band and a Mohit-en-Y gastric bypass were reviewed in detail. The patient elected for a sleeve gastrectomy. Robotic assisted approach described. 2. The NSQIP Data was also reviewed with benefits and risks as described. 3. An 8 page second-generation bariatric consent form was reviewed in detail including potential of bleeding, infection, leaks, adequate weight loss, nutritional deficiencies which the patient demonstrated understanding of the risks. 4. A 2 week high-protein low caloric 800 kcal diet described to address hepatomegaly. 5. Preoperative labs including complete metabolic panel and CBC with type and screen recommended. 6. DVT prophylaxis per [place] [facility]. 7. Antibiotic prophylaxis. 8. Inpatient hospitalization anticipated for more than 2 nights. 9. All questions and concerns were addressed with the patient. 10. Overall, patient has expressed understanding of bariatric care including postoperative diet and commitment of lifestyle. Patient should benefit from surgical intervention for correction of her morbid obesity. Past Medical History Past Medical History: GERD/Reflux, Hypertension, Musculoskeletal Disorder, Sleep Apnea/CPAP/BIPAP Additional Past Medical History / Comment(s): Blood in stools; uses CPAP; Back pain. tinnitus with hearing loss History of Any Multi-Drug Resistant Organisms: None Reported Past Surgical History: No Surgical Hx Reported Additional Past Surgical History / Comment(s): Nasal sx.; wisdom teeth Past Anesthesia/Blood Transfusion Reactions: No Reported Reaction Additional Past Anesthesia/Blood Transfusion Reaction / Comment(s): "irritable after anesthesia" Smoking Status: Never smoker - Past Family History Mother Family Medical History: No Reported History Father Family Medical History: Deep Vein Thrombosis (DVT) Medications and Allergies Home Medications Medication Instructions Recorded Confirmed Type Losartan Potassium 50 mg PO HS 12/03/20 04/21/21 History Allergies Allergy/AdvReac Type Severity Reaction Status Date / Time Penicillins Allergy Rash/Hives Verified 04/21/21 08:42
[~2021-04-27 12:36] MED LIST changes: +ACETAMINOPHEN TAB 500 MG TAB PO PRN; +CHLORHEXIDINE GLUCONATE 15 ML CUP MUCOUS MEM PRN; +DEXAMETHASONE SOD PHOSPHATE 4 MG/ML 1 ML VIAL IV ONE; +ENOXAPARIN 40 MG/0.4 ML SYRINGE SQ PRN; +GABAPENTIN 300 MG CAP PO PRN; +HYDROmorphone 0.5 MG/0.5 ML SYRINGE IVP PRN; -KETAMINE 10 MG/ML 20 ML VIAL ONE; -LACTATED RINGERS 1,000 ML IV SCH; -LIDOCAINE 1% (10MG/ML) FOR IV START INTRADERMA PRN; -LIDOCAINE 1% INJ 10MG/ML (20 ML MDV) ONE; +MELOXICAM 7.5 MG TAB PO PRN; -MIDAZOLAM 2 MG/2 ML VIAL ONE; +ONDANSETRON 4 MG/2 ML VIAL IVP ONE; +PANTOPRAZOLE 40 MG/10 ML VIAL IVP PRN; -PROPOFOL 10 MG/ML 20 ML VIAL IV ONE; +SCOPOLAMINE 1.5MG/72HR PATCH TRANSDERM PRN; +ceFAZolin 3 GM in SODIUM CHLORIDE 0.9% 100 ML IVPB PRN
[2021-04-27] MEDS: LACTATED RINGERS 1,000 ML IV SCH (14:06)
[2021-04-27] MEDS ORDERED: LIDOCAINE 1% INJ 10MG/ML (20 ML MDV) ONE (15:23)
[2021-04-27] MEDS ORDERED: HYDROmorphone (PF) 1 MG/ML ONE (15:23)
[2021-04-27] MEDS ORDERED: NEOSTIGMINE 1 MG/ML 10 ML VIAL ONE (15:23)
[2021-04-27] MEDS ORDERED: GLYCOPYRROLATE 0.2 MG/ML 2 ML VIAL ONE (15:23)
[2021-04-27] MEDS ORDERED: PROPOFOL 10 MG/ML 20 ML VIAL IV ONE (15:23)
[2021-04-27] MEDS ORDERED: SUCCINYLCHOLINE CHLORIDE VIAL 200 MG/10 ML VIAL IV ONE (15:23)
[2021-04-27] MEDS ORDERED: MIDAZOLAM 2 MG/2 ML VIAL ONE (15:23)
[2021-04-27] MEDS ORDERED: ROCURONIUM 10 MG/ML (5 ML VIAL) IV ONE (15:23)
[2021-04-27] MEDS ORDERED: fentaNYL (PF) 50 MCG/ML 2 ML AMP ONE (15:23)
[2021-04-27] MEDS ORDERED: LIDOCAINE 1%-EPI 1:100,000 20 ML VIAL SQ ONE (15:59)
[2021-04-27] MEDS ORDERED: LACTATED RINGERS 1,000 ML IV ONE (16:54)
[2021-04-27] MEDS ORDERED: diphenhydrAMINE 50 MG/ML 1 ML VIAL IVP PRN (17:24)
[2021-04-27] MEDS ORDERED: NALOXONE 0.4 MG/ML 1 ML VIAL IV PRN (17:24)
[2021-04-27] MEDS ORDERED: SIMETHICONE 40 MG/0.6 ML DROPS 2,000 MG/30 ML BOTTLE PO PRN (17:24)
[2021-04-27] MEDS ORDERED: HYDROmorphone 1 MG/ML 1 ML SYRINGE IVP PRN (17:24)
[2021-04-27] MEDS ORDERED: DEXAMETHASONE SOD PHOSPHATE 10 MG/ML 1 ML VIAL IV PRN (17:26)
[2021-04-27] MEDS ORDERED: SODIUM CHLORIDE 0.9% 2,000 ML IV ONE (17:27)
[2021-04-27] MEDS ORDERED: diphenhydrAMINE 50 MG/ML 1 ML VIAL IVP ONE (17:29)
[2021-04-27] MEDS ORDERED: KETOROLAC 15 MG/ML 1 ML VIAL IVP ONE (17:30)
[2021-04-27] MEDS ORDERED: ONDANSETRON 4 MG/2 ML VIAL IVP ONE (17:30)
--- NOTE | 2021-04-27 19:01 | P.OP ---
Date of Procedure: 04/27/21 Description of Procedure: SURGEON: CLIFF CONROY MD PREOPERATIVE DIAGNOSES: 1. Morbid obesity due to excess calories 2. Body mass index of 52.3 to 49.1 3. Post traumatic stress disorder 4. Gastroesophageal reflux disease 5. Hypertension 6. Obstructive sleep apnea 7. Osteoarthritis lower back 8. Osteoarthritis of the knees 9. Iron deficiency 10. Elevated liver enzymes 11. Zinc deficiency 12. Vitamin D deficiency 13. Hypercholesterolemia 14. Hypertriglyceridemia POSTOPERATIVE DIAGNOSES: 1. Morbid obesity due to excess calories 2. Body mass index of 52.3 to 49.8 3. Post traumatic stress disorder 4. Gastroesophageal reflux disease 5. Hypertension 6. Obstructive sleep apnea 7. Osteoarthritis lower back 8. Osteoarthritis of the knees 9. Iron deficiency 10. Elevated liver enzymes 11. Zinc deficiency 12. Vitamin D deficiency 13. Hypercholesterolemia 14. Hypertriglyceridemia 15. Duodenitis OPERATION: 1. Robotic assisted daVinci Xi laparoscopic sleeve gastrectomy with 40-Bolivian bougie, multiport. 2. Intraoperative esophagogastroduodenoscopy. ANESTHESIA: Gen. local anesthetic ESTIMATED BLOOD LOSS: 5 mL SPECIMENS REMOVED: Sleeve gastrectomy COMPLICATIONS: None. FINDINGS: 1. Negative intraoperative esophagogastrojejunoscopy leak test. 2. No hepatomegaly or large hiatus hernia. 3. Total of 7 staplers used including 1 - 60 mm black robot sparkle and 5 - 60 mm green robot loads used to create the gastric sleeve. 4. Sleeve gastrectomy, 30 x 6 cm 5. Duodenitis identified along the first and second portion of the duodenum. INDICATIONS: Clemente Atkins is a 35-year-old male who comes with lifelong morbid obesity. As a result of his morbid obesity, he has developed hypertension, obstructive sleep apnea, osteoarthritis of the lower back, osteoarthritis of the hips, osteoarthritis of knees, osteoarthritis of the ankles. He is looking into sleeve gastrectomy. At height of 5 feet 9 inches, his ideal body weight is 168 pounds. He comes in 332 pounds. His body mass index is 49.1. He is 164 pounds overweight. All surgical options for morbid obesity had been described using the [place] bariatric surgery collaborative comorbidity resolution including complication risk score. A second-generation bariatric consent form was described in detail including the possibility of protein malnutrition, leaks, gastric stricture, venous thrombosis, gastroesophageal reflux disease, need for further surgery for which she demonstrated understanding. Benefits and risks of the procedure were described at length. Informed consent was obtained. DESCRIPTION: The patient was brought into the operating room theater. Preoperatively he had received Lovenox subcutaneously for DVT prophylaxis. Additionally he had Peridex oral solution as an oral decontaminant. After general induction, the abdomen was prepped and draped in standard sterile fashion. An Ioban draping was placed along the abdomen. A robotic da Yadiel Xi system was prepped and primed. At 15 cm from the xiphoid, proposed port sites were marked with indelible marker along the anterior axillary line bilaterally, mid axillary line bilaterally with each ports were marked 10 to 15 cm from each other. The general office assistant port was marked along the left lateral abdominal wall. The robotic stapler port was marked for the right midclavicular line. A 5 mm 0 degrees laparoscopic trocar entry was performed along the left upper quadrant. The abdomen was insufflated to 15 mmHg pressure was tolerated well. Diagnostic laparoscopy demonstrated no injury to bowel, viscera, or mesentery. No evidence of large hiatus hernia was identified. The liver edge was sharp consistent with 2 week low-carb high-protein diet. A 8 mm port was placed along the left upper abdominal wall after exchanging the 5 mm port. A separate 8 mm port was placed along the left lateral abdominal wall. Please note that the ports were placed at least 20 cm away from the target anatomy. Care was taken to check each robotic arms were safely away from collision with the bed or the patient. At the epigastrium, a medium sized Didier liver retractor was placed under direct visualization with the Iron Still Operator Whiskey placed under the right shoulder of the patient. Next, 12-mm robot stapler port was placed along the right upper quadrant. The camera 8-mm port was maintained along the epigastrium. The patient was repositioned in reverse Trendelenburg position at 24-degrees after lowering the bed. The robot was docked along the left side of the patient. Using a grasper for arm 4, a vessel sealer for arm 3, including grasper for arm 1, the robotic system was docked and primed as described. Instruments were interchanged by the general office assistant for stapler loads. The camera was placed at 30- degrees down. I had sat at the console. The pylorus was identified and 6 cm proximally along the greater curvature of the stomach, the short gastrics were mobilized upwards to the angle of His using a vessel sealer. Hemostasis was excellent during this portion of the procedure. Next, the upper pole of the stomach was adherent to the left liliane, which was gently dissected free using atraumatic grasper. I went to the head of the bed and placed 40-Bolivian blunt bougie into the stomach. The bougie was readjusted by the nurse technician submarine cable equipment. Robotic stapler black load 60 mm 1 followed by green 60 mm x 5 loads were used to create the sleeve. Initial firing was across the antrum of the stomach towards the angle of His. The staple line was linear without corkscrewing. The space from the angularis incisura of the sleeve was approximately 4 cm. I then went to the head of the bed to perform the intraoperative esophagogastroduodenoscopy leak test. The bougie was withdrawn. The upper pole of the stomach was bathed using normal saline solution. The scope was withdrawn with careful inspection along the staple line for which no leaks were found along the entire length. Inflammation along the first and second portion was found consistent with duodenitis. Additionally,the sleeve was completely hemostatic without any encroachment along the angularis incisura. Its topology was a soft "J". No stricture was encountered upon placement of the scope. The GI tract was desufflated. The patient tolerated this portion of the procedure well. The scope was completely withdrawn. The robot was undocked. I then rescrubbed into case, whereby the irrigation fluid was aspirated from the abdominal cavity. Tisseel fibrin sealant was placed along the entire staple length. Once dried the Didier liver retractor was removed. Attention was now brought to removal of the specimen. The distal end of the sleeve gastrectomy specimen was brought out through the 12 mm port at the left upper quadrant. The specimen was gently removed en total. No contamination had occurred during this process. All instruments and pneumoperitoneum including irrigation fluid was removed from the abdominal cavity. The 12 mm port site was closed using 0-Vicryl and Jarrell Singer and irrigated with diluted hydrogen peroxide. The final incisions were closed using subcuticular interrupted suture of 4-0 Monocryl. Exofin was applied to the skin once the skin had been cleansed. OptiFoam dressing was placed along the stomach extraction site. The sleeve specimen was measured and checked also for leaks which none were found. At the end of the procedure, needle, sponge, and instrument count was verified correct by the surgical pathologist. The patient was taken to the postanesthesia care unit in stable condition. He had tolerated the procedure well. Intraoperative films and findings were reviewed with the patient's family.
[2021-04-27] MEDS: ALBUTEROL NEBULIZED 2.5 MG/3 ML INHALATION SCH (20:19)
[2021-04-27] MEDS: ACETAMINOPHEN IV (For NPO) 1,000 MG in EMPTY BAG 1 BAG IVPB SCH ×2 (20:24→23:42)
[2021-04-27] MEDS: ONDANSETRON 4 MG/2 ML VIAL IVP SCH ×2 (20:25→23:40)
[2021-04-27] MEDS: DEXAMETHASONE SOD PHOSPHATE 4 MG/ML 1 ML VIAL IV SCH ×2 (20:25→23:39)
[2021-04-27] MEDS: KETOROLAC 15 MG/ML 1 ML VIAL IVP SCH ×2 (20:25→23:37)
[2021-04-27] MEDS: HYOSCYAMINE ORAL DROPS 1.875 MG/15 ML BOTTLE PO SCH ×2 (20:28→23:45)
[2021-04-27] MEDS ORDERED: LOSARTAN 50 MG TAB PO SCH (21:00)
[2021-04-27] MEDS: 0.9% NACL WITH KCL 20 MEQ/L 1,000 ML IV SCH (23:35)
[2021-04-28] MEDS ORDERED: ceFAZolin 3 GM in SODIUM CHLORIDE 0.9% 100 ML IVPB SCH ×2
[2021-04-28] MEDS: 0.9% NACL WITH KCL 20 MEQ/L 1,000 ML IV SCH ×2 (00:22→10:17)
[2021-04-28] MEDS: DEXAMETHASONE SOD PHOSPHATE 4 MG/ML 1 ML VIAL IV SCH ×3 (05:47→17:41)
[2021-04-28] MEDS: KETOROLAC 15 MG/ML 1 ML VIAL IVP SCH ×3 (05:47→17:40)
[2021-04-28] MEDS: HYOSCYAMINE ORAL DROPS 1.875 MG/15 ML BOTTLE PO SCH ×2 (05:48→12:54)
[2021-04-28] MEDS: ACETAMINOPHEN IV (For NPO) 1,000 MG in EMPTY BAG 1 BAG IVPB SCH ×2 (05:48→12:55)
[2021-04-28] MEDS: ONDANSETRON 4 MG/2 ML VIAL IVP SCH ×3 (05:48→17:49)
[2021-04-28] MEDS: ALBUTEROL NEBULIZED 2.5 MG/3 ML INHALATION SCH ×3 (08:03→16:24)
[2021-04-28 08:26] VITALS: RESP 16
[2021-04-28] MEDS ORDERED: ENOXAPARIN 40 MG/0.4 ML SYRINGE SQ SCH (09:00)
[2021-04-28] MEDS ORDERED: PANTOPRAZOLE 40 MG/10 ML VIAL IV SCH (09:00)
[2021-04-28] MEDS: LACTATED RINGERS 1,000 ML IV SCH (10:04)
[2021-04-28] MEDS: SODIUM CHLORIDE 0.9% 1,000 ML IV SCH ×2 (10:09→11:45)
[2021-04-28 11:06] LABS: Basophils # (A) 0.02 X 10*3/uL (0.00-0.10); Basophils % (A) 0.2 %; Eosinophils # (A) 0 X 10*3/uL (0.04-0.35); Eosinophils % (A) 0 %; HCT 40.5 % (39.6-50.0); HGB 13.8 g/dL (13.0-17.0); Lymphocytes # (A) 0.92 X 10*3/uL (0.90-5.00); Lymphocytes % (A) 8.2 %; MCH 30.4 pg (27.0-32.0); MCHC 34.1 g/dL (32.0-37.0); MCV 89.2 fL (80.0-97.0); Mean Platelet Volume 11.7 fL (9.5-12.2); Monocytes # (A) 0.36 X 10*3/uL (0.20-1.00); Monocytes % (A) 3.2 %; Neutrophils # (A) 9.93 X 10*3/uL (1.80-7.70); Platelet Count 238 X 10*3/uL (140-440); RBC 4.54 X 10*6/uL (4.40-5.60); RDW 12.1 % (11.5-14.5); WBC 11.27 X 10*3/uL (4.50-10.00)
--- NOTE | 2021-04-28 12:59 | FL ---
EXAMINATION TYPE: FL UGI DATE OF EXAM: 04/28/2021 COMPARISON: None HISTORY: Post gastric sleeve TECHNIQUE: A single contrast UGI study is performed. FINDINGS: Contrast passes from the distal esophagus through the gastric sleeve with mild to moderate hesitancy. No extravasation of contrast is evident. No free air is noted during this examination. Overhead radiographs were obtained which are unremarkable. Fluoroscopy time: 39 Images: 70 IMPRESSIONS: 1. Normal post gastric sleeve with mild to moderate hesitancy passing through the gastric sleeve. No extravasation.
[2021-04-28 14:18] VITALS: BMI 49.1
[2021-04-28 14:30] LABS: African American GFR (CKD) 127.8 (60.0-200.0); Anion Gap 15.7 mmol/L (4.00-12.00); Calcium 9.1 mg/dL (8.7-10.3); Carbon Dioxide 19.3 mmol/L (21.6-31.8); Magnesium 1.9 mg/dL (1.5-2.4); Non-African American GFR(CKD) 110.3 (60.0-200.0); Phosphorus 3.6 mg/dL (2.4-5.1); Potassium 4.5 mmol/L (3.5-5.5)
[2021-04-28 14:35] VITALS: BP 136/90; PULSE 60; TEMP 98
--- NOTE | 2021-04-28 20:27 | P.DS ---
Providers Date of admission: 04/27/21 12:36 Expected date of discharge: 04/28/21 Attending physician: Debra Reid Primary care physician: Fatmata Reed - Discharge Diagnosis(es) (1) BMI 50.0-59.9, adult Status: Acute (2) Hypertension Status: Acute (3) Morbid (severe) obesity due to excess calories Status: Acute (4) Osteoarthritis of lower back Status: Acute (5) Sleep apnea Status: Acute Hospital Course: POSTOPERATIVE DIAGNOSES: 1. Morbid obesity due to excess calories 2. Body mass index of 52.3 to 49.8 3. Post traumatic stress disorder 4. Gastroesophageal reflux disease 5. Hypertension 6. Obstructive sleep apnea 7. Osteoarthritis lower back 8. Osteoarthritis of the knees 9. Iron deficiency 10. Elevated liver enzymes 11. Zinc deficiency 12. Vitamin D deficiency 13. Hypercholesterolemia 14. Hypertriglyceridemia 15. Duodenitis COURSE: Meghan Rubio is a 35-year-old female who comes in with lifelong morbid obesity. He completed medical supervised weight loss. He completed the bariatric program requirements. He presented for sleeve gastrectomy. After sleeve gastrectomy, patient was tolerating liquids. Esophagram was unremarkable for severe obstruction. Discharge instructions were reviewed in detail. Pain was well-controlled. ROS: No reports of nausea and vomiting. No bowel movements. No fevers or chills. No new chest pain. No productive sputum PHYSICAL EXAM: VITAL SIGNS: Reviewed CONSTITUTIONAL: Well developed and in no acute distress. EYES: Conjuctivae without sclera icterus. Extraocular movements grossly intact. HEAD, EARS, NOSE, THROAT: Moist buccal mucosa. Head is atraumatic, normocephalic. Hears conversational speech. No nasal drainage. NECK: Supple. No thyroidomegaly. RESPIRATORY: Non-labored respirations and equal bilateral excursions. CARDIOVASCULAR: Palpable 2+ radial pulses. Regular rate. Regular rhythm. ABDOMEN: Incisions clean dry and intact. Soft. No peritonitis. Minimal tenderness left upper quadrant. MUSCULOSKELETAL: No gross deformity of the lower extremities noted. No clubbing. No cyanosis. SKIN: Good skin turgor. Well perfused. NEUROLOGIC: Cranial nerves II through XII grossly intact. No focal or lateralizing signs. PSYCH: Appropriate affect. Alert and oriented to person, place and time. CLINICAL LABS: Reviewed. Hgb 13.8. ASSESSMENT: 1. Morbid obesity due to excess calories. PLAN: 1. Patient stable for discharge. Laboratory Last Values WBC 11.27 X 10*3/uL (4.50-10.00) H 04/28/21 06:41 RBC 4.54 X 10*6/uL (4.40-5.60) 04/28/21 06:41 Hgb 13.8 g/dL (13.0-17.0) 04/28/21 06:41 Hct 40.5 % (39.6-50.0) 04/28/21 06:41 MCV 89.2 fL (80.0-97.0) 04/28/21 06:41 MCH 30.4 pg (27.0-32.0) 04/28/21 06:41 MCHC 34.1 g/dL (32.0-37.0) 04/28/21 06:41 RDW 12.1 % (11.5-14.5) 04/28/21 06:41 Plt Count 238 X 10*3/uL (140-440) 04/28/21 06:41 MPV 11.7 fL (9.5-12.2) 04/28/21 06:41 Immature Gran % (Auto) 0.4 % 04/28/21 06:41 Absolute Nucleated RBC 0 X 10*3/uL (0.00-0.00) 04/28/21 06:41 Neutrophils % 88.0 % 04/28/21 06:41 Lymphocytes % 8.2 % 04/28/21 06:41 Monocytes % 3.2 % 04/28/21 06:41 Eosinophils % 0 % 04/28/21 06:41 Basophils % 0.2 % 04/28/21 06:41 Immature Gran # 0.04 X 10*3/uL (0.00-0.04) 04/28/21 06:41 Neutrophils # 9.93 X 10*3/uL (1.80-7.70) H 04/28/21 06:41 Lymphocytes # 0.92 X 10*3/uL (0.90-5.00) 04/28/21 06:41 Monocytes # 0.36 X 10*3/uL (0.20-1.00) 04/28/21 06:41 Eosinophils # 0 X 10*3/uL (0.04-0.35) L 04/28/21 06:41 Basophils # 0.02 X 10*3/uL (0.00-0.10) 04/28/21 06:41 NRBC/100 WBC Diff 0 /100 WBCS (0.0-0.0) 04/28/21 06:41 Sodium 139 mmol/L (135-145) 04/28/21 06:41 Potassium 4.5 mmol/L (3.5-5.5) 04/28/21 06:41 Chloride 104 mmol/L (96-109) 04/28/21 06:41 Carbon Dioxide 19.3 mmol/L (21.6-31.8) L 04/28/21 06:41 Anion Gap 15.70 mmol/L (4.00-12.00) H 04/28/21 06:41 BUN 8.0 mg/dL (9.0-27.0) L 04/28/21 06:41 Creatinine 0.9 mg/dL (0.6-1.5) 04/28/21 06:41 Est GFR (CKD-EPI)AfAm 127.8 (60.0-200.0) 04/28/21 06:41 Est GFR (CKD-EPI)NonAf 110.3 (60.0-200.0) 04/28/21 06:41 Calcium 9.1 mg/dL (8.7-10.3) 04/28/21 06:41 Phosphorus 3.6 mg/dL (2.4-5.1) 04/28/21 06:41 Magnesium 1.9 mg/dL (1.5-2.4) 04/28/21 06:41 Blood Type O Positive 04/17/21 09:01 Blood Type Confirm O Positive 04/27/21 13:43 Blood Type Recheck No Previous Record 04/17/21 09:01 Bld Type Recheck Status CABO Indicated 04/17/21 09:01 Antibody Screen NEGATIVE 04/17/21 09:01 Spec Expiration Date 04/29/2021 - 230004/17/21 09:01 Vital Signs Temp 98.0 F 04/28/21 14:00 Pulse 60 04/28/21 14:00 Resp 16 04/28/21 14:00 BP 136/90 04/28/21 14:00 Pulse Ox 94 L 04/28/21 17:24 Intake & Output 04/28/21 04/28/21 04/29/21 06:59 18:59 06:59 Intake Total 120 Balance 120 Weight 150.9 kg Intake: Oral 120 Other: # Voids 2 3 Pertinent Studies: Esophagram reviewed without complete obstruction of sleeve gastrectomy. Procedures: OPERATION: 1. Robotic assisted daVinci Xi laparoscopic sleeve gastrectomy with 40-Turkmen bougie, multiport. 2. Intraoperative esophagogastroduodenoscopy. ANESTHESIA: Gen. local anesthetic ESTIMATED BLOOD LOSS: 5 mL SPECIMENS REMOVED: Sleeve gastrectomy COMPLICATIONS: None. FINDINGS: 1. Negative intraoperative esophagogastrojejunoscopy leak test. 2. No hepatomegaly or large hiatus hernia. 3. Total of 7 staplers used including 1 - 60 mm black robot sparkle and 5 - 60 mm green robot loads used to create the gastric sleeve. 4. Sleeve gastrectomy, 30 x 6 cm 5. Duodenitis identified along the first and second portion of the duodenum. Patient Condition at Discharge: Good Plan - Discharge Summary Discharge Rx Participant: Yes New Discharge Prescriptions: New Omeprazole [PriLOSEC] 40 mg PO DAILY #30 cap Ondansetron Odt [Zofran Odt] 4 mg PO Q8HR PRN #9 tab PRN Reason: Nausea bisacodyL [Dulcolax] 5 mg PO DAILY PRN #10 tab PRN Reason: Constipation Simethicone 40 mg/0.6 ml Drops [Mylicon Drops] 40 mg PO PCHS PRN #30 ml PRN Reason: Gas Acetaminophen Tab [Tylenol Tab] 1,000 mg PO Q6HR PRN #30 tablet PRN Reason: Pain Continue Losartan Potassium 50 mg PO HS Discharge Medication List Losartan Potassium 50 mg PO HS 12/03/20 [History] Acetaminophen Tab [Tylenol Tab] 1,000 mg PO Q6HR PRN #30 tablet 04/28/21 [Rx] Omeprazole [PriLOSEC] 40 mg PO DAILY #30 cap 04/28/21 [Rx] Ondansetron Odt [Zofran Odt] 4 mg PO Q8HR PRN #9 tab 04/28/21 [Rx] Simethicone 40 mg/0.6 ml Drops [Mylicon Drops] 40 mg PO PCHS PRN #30 ml 04/28/21 [Rx] bisacodyL [Dulcolax] 5 mg PO DAILY PRN #10 tab 04/28/21 [Rx] Follow up App[facility]ment(s[facility] [place] [facility] - 05/01/21 9:00 am Patient Instructions/Handouts: How to Use an Incentive Spirometer (DC), Nutrition after Bariatric Surgery (DC), Laparoscopic Sleeve Gastrectomy (DC), Deep Vein Thrombosis Prevention (ED) Activity/Diet/Wound Care/Special Instructions: Liquid diet only for 2 weeks until May 11 No lifting over 4 pounds in 4 weeks, May 28 May Shower. No soaking in bath tubs 2 weeks, until May 11 Please notify your surgeon if you develop nausea and vomiting including new onset of abdominal pain. Continue to use incentive spirometry to prevent pneumonias. Please continue to ambulate at home to prevent blood clots in legs. Use your new prescriptions. Follow-up at the bariatric center. Dressings to be discontinued by surgeon in the office. Drink 64 oz of fluid daily. Start protein shakes on . Notify bariatric center for temp over 101.0, increased pain, drainage from incisions. No straws or carbonated beverages. Liquid diet only. Sugar content should be less than 6 g to avoid dumping syndrome. Take MOM for constipation. CRUSH, OPEN, OR CUT TABLETS LARGER THAN A SIZE OF A TIC TAC Discharge Disposition: HOME SELF-CARE
[2021-04-29] MEDS ORDERED: bisacodyL 5 MG TABLET.DR PO PRN (08:00)
--- NOTE | 2021-05-03 11:33 | P.PN ---
Progress Note - Text Progress Note Date: 05/03/21 Patient contacted via telephone regarding follow-up. Left message to contact us for any issues. Follow-up in 3 days
== END 2021-04-28 19:10 | disposition home or self-care (01) | DRG 621 ==
LOC: 2ORMAIN 12:36 → 4SSUR 19:01
PROVIDERS: ADMIT Surgery Plastic and Reconstructive Surgery; ATTEND Surgery Plastic and Reconstructive Surgery
PROC: 0DJ08ZZ Inspection of Upper Intestinal Tract, Via Natural or Artificial Opening Endoscopic (ICD-10-PCS; 2021-04-27)
PROC: 8E0W4CZ Robotic Assisted Procedure of Trunk Region, Percutaneous Endoscopic Approach (ICD-10-PCS; 2021-04-27)
PROC: 0DB64Z3 Excision of Stomach, Percutaneous Endoscopic Approach, Vertical (ICD-10-PCS; principal; 2021-04-27 13:50)
DX: E66.01 Morbid (severe) obesity due to excess calories (principal); Z68.43 Body mass index [BMI] 50.0-59.9, adult; M17.0 Bilateral primary osteoarthritis of knee; E55.9 Vitamin D deficiency, unspecified; E60 Dietary zinc deficiency; E61.1 Iron deficiency; E78.00 Pure hypercholesterolemia, unspecified; E78.1 Pure hyperglyceridemia; F43.10 Post-traumatic stress disorder, unspecified; G47.33 Obstructive sleep apnea (adult) (pediatric); H91.90 Unspecified hearing loss, unspecified ear; I10 Essential (primary) hypertension; K21.9 Gastro-esophageal reflux disease without esophagitis; K29.80 Duodenitis without bleeding; M16.0 Bilateral primary osteoarthritis of hip; M47.9 Spondylosis, unspecified
CPT/HCPCS: 74240; 80051; 82310; 82565; 83735; 84100; 84520; 85025; 86850; 86900; 86901; 88307

== ENCOUNTER → 2021-05-06 | Outpatient (CLI) | payer BC ==
[2021-05-06 13:17] VITALS: BP 109/74; PULSE 86; RESP 18; TEMP 98.1; BMI 47.4
--- NOTE | 2021-05-06 13:49 | P.PN ---
Subjective Progress Note Date: 05/06/21 He comes in 1 month from last visit. He had a coughing spell. He has lost 35 pounds in 1 month. Blood pressure is excellent. Stop blood pressure medication for low blood pressure. He was coughing it at night. He ate within 1 hr of sleeping. He is off his CPAP machine. Recommend recycle CPAP machine. Follow up in 1 month. He wants to go back to work. Objective - Vital Signs Vital signs: Vital Signs Temp 98.1 F 05/06/21 13:07 Pulse 86 05/06/21 13:07 Resp 18 05/06/21 13:07 BP 109/74 05/06/21 13:07 Pulse Ox Intake & Output 05/05/21 05/06/21 05/06/21 18:59 06:59 18:59 Weight 145.603 kg
--- NOTE | 2021-05-06 13:54 | P.PN ---
Progress Note - Text Progress Note Date: 05/06/21 To whom it may concern: Clemente Atkins is under my surgical care. He may return to work with restrictions of 4 pounds on Tuesday, May 11. He will be off restrictions, May 28. Regards, Debra Reid MD, FACS
== END ==
LOC: BARWHC3 12:50
PROVIDERS: ATTEND Surgery Plastic and Reconstructive Surgery
DX: E66.01 Morbid (severe) obesity due to excess calories (principal); Z71.3 Dietary counseling and surveillance; Z68.42 Body mass index [BMI] 45.0-49.9, adult; Z88.0 Allergy status to penicillin
CPT/HCPCS: 97803; 99211

== ENCOUNTER → 2021-07-02 | Outpatient (CLI) | payer BC ==
[2021-07-02 09:09] LABS: Partial Thromboplastin Time 24.7 sec (22.0-30.0); Prothrombin Time 10.3 sec (9.0-12.0)
[2021-07-02 10:58] LABS: HGB 14.4 g/dL (13.0-17.0); MCH 29.4 pg (27.0-32.0); MCHC 33.5 g/dL (32.0-37.0); MCV 87.9 fL (80.0-97.0); Mean Platelet Volume 11.4 fL (9.5-12.2); Platelet Count 197 X 10*3/uL (140-440); RBC 4.89 X 10*6/uL (4.40-5.60); RDW 12.4 % (11.5-14.5); WBC 5.84 X 10*3/uL (4.50-10.00)
[2021-07-02 16:20] LABS: Folate, Serum 7.7 ng/mL (4.40-31.00)
[2021-07-02 17:17] LABS: African American GFR (CKD) 138.7 (60.0-200.0); Albumin 4.4 g/dL (3.8-4.9); Albumin/Globulin Ratio 1.64 (1.60-3.17); Anion Gap 14.5 mmol/L (4.00-12.00); BUN/Creat Ratio 17.34 Ratio (12.00-20.00); Blood Urea Nitrogen 12.8 mg/dL (9.0-27.0); Calcium 9.3 mg/dL (8.7-10.3); Carbon Dioxide 22.3 mmol/L (21.6-31.8); Chol/HDL Ratio 4.54 Ratio; Globulin 2.7 g/dL (1.6-3.3); HDL Cholesterol 37.9 mg/dL (40.00-60.00); LDL Cholesterol,Calculated 105.3 mg/dL (0.0-131.0); Non-African American GFR(CKD) 119.6 (60.0-200.0); Potassium 3.7 mmol/L (3.5-5.5); Prealbumin 22.5 mg/dL (18.0-42.0); Total Bilirubin 0.6 mg/dL (0.30-1.20); VLDL Calculation 28.8 mg/dL (5.00-40.00)
[2021-07-02 19:36] LABS: % Iron Saturation 21.65 (15.00-50.00); Magnesium 2.1 mg/dL (1.5-2.4)
[2021-07-03 12:10] LABS: Zinc, Serum 69 ug/dL (60-130)
== END | disposition home or self-care (01) ==
LOC: LABWHC1 07:28
PROVIDERS: ATTEND Surgery Plastic and Reconstructive Surgery
DX: E66.01 Morbid (severe) obesity due to excess calories (principal); E89.1 Postprocedural hypoinsulinemia; D50.8 Other iron deficiency anemias; K90.89 Other intestinal malabsorption; E55.9 Vitamin D deficiency, unspecified; K74.1 Hepatic sclerosis; N19 Unspecified kidney failure; K50.90 Crohn's disease, unspecified, without complications; Z98.84 Bariatric surgery status
CPT/HCPCS: 36415; 80053; 80061; 82306; 82525; 82607; 82728; 82746; 83036; 83540; 83550; 83735; 83970; 84100; 84134; 84255; 84425; 84443; 84590; 84630; 85027; 85610; 85730

== ENCOUNTER → 2021-07-29 | Outpatient (CLI) | payer BC ==
[2021-07-29 13:24] VITALS: BP 146/81; PULSE 76; RESP 18; TEMP 98.1; BMI 44.5
--- NOTE | 2021-07-29 14:20 | P.BASOAP ---
Subjective Progress Note Date: 07/29/21 He reports GERD with laying down. He has lost 60 pounds. He eats 8:30pm then bed at 12 midnight. Prilosec. Vitamin D is low. He completed his labs. Objective - Vital Signs Vital signs: Vital Signs Temp 98.1 F 07/29/21 13:15 Pulse 76 07/29/21 13:15 Resp 18 07/29/21 13:15 BP 146/81 07/29/21 13:15 Pulse Ox Intake & Output 07/28/21 07/29/21 07/29/21 18:59 06:59 18:59 Weight 136.713 kg Assessment/Plan Plan: Date: 07/29/21 Initial Weight: 160.118 kg Initial BMI: 52.1 Current Weight: 136.713 kg Current BMI: 44.5 Type of Surgery: Total Volume in Band: Previous Volume: Volume Removed: Volume Added: Band Size:
== END ==
LOC: BARWHC3 12:48
PROVIDERS: ATTEND Surgery Plastic and Reconstructive Surgery
DX: E66.01 Morbid (severe) obesity due to excess calories (principal); Z71.3 Dietary counseling and surveillance; Z88.0 Allergy status to penicillin; Z68.41 Body mass index [BMI] 40.0-44.9, adult
CPT/HCPCS: 97803; 99211

== ENCOUNTER → 2021-10-14 | Outpatient (CLI) | payer BC ==
[2021-10-14 13:24] VITALS: BP 142/94; PULSE 86; RESP 16; TEMP 98.1; BMI 43.7
--- NOTE | 2021-10-14 14:15 | P.BASOAP ---
Subjective Progress Note Date: 10/14/21 DATE OF SERVICE: 10/14/2021 CHIEF COMPLAINT: Status post sleeve gastrectomy HISTORY OF PRESENT ILLNESS: Clemente Atkins is a 35-year-old male who is status post sleeve gastrectomy, 04/27/2021. He is over 6 months out. He is not keeping food diary journal. He is exercising and weigh lifting. He reports moderate stress as his dad has stage 4 cancer. He reports his is losing weight. At height of 5 feet 9 inches, his ideal body weight is 168 pounds. Highest weight of 355 pounds, BMI 52.6. He comes in 295 pounds from 301 pounds, 2 months ago. He has lost 5 pounds in 2 months. His body mass index is down to 43.7. Lifetime weight loss of 60 pounds. Percent lifetime excess weight loss of 32 %. He is 127 pounds overweight. PHYSICAL EXAM: VITAL SIGNS: Height 5 foot 9 inches, weight 295 pounds. BMI 43.7 Vital Signs Temp 98.1 F 10/14/21 13:22 Pulse 86 10/14/21 13:22 Resp 16 10/14/21 13:22 BP 142/94 10/14/21 13:22 Pulse Ox GENERAL: Well-developed in no acute distress. HEENT: No scleral icterus. Extraocular movements grossly intact. Hears conversational speech. No nasal drainage. NECK: Supple without lymphadenopathy. CHEST: Nonlabored respirations with equal bilateral excursions. CARDIOVASCULAR: Distal 2+ pulses. ABDOMEN: No abdominal wall hernias. MUSCULOSKELETAL: No clubbing, cyanosis. NEURO: No focal or lateralizing signs. Cranial nerves 2 through 12 grossly within normal limits. PSYCH: Appropriate affect. Alert and oriented to person, place and time. SKIN: Good skin turgor. Well perfused. LABS: Reviewed. ASSESSMENT: 1. Morbid obesity due to excess calories 2. Body mass index of 52.3 to 43.7 3. Post traumatic stress disorder 4. Gastroesophageal reflux disease 5. Hypertension 6. Obstructive sleep apnea 7. Osteoarthritis lower back 8. Osteoarthritis of the knees 9. Iron deficiency 10. Elevated liver enzymes 11. Zinc deficiency 12. Vitamin D deficiency 13. Hypercholesterolemia 14. Hypertriglyceridemia 15. Family gallbladder disorder 16. Status post sleeve gastrectomy PLAN: 1. Recommed food diary journal. 2. Recommend bariatric labs Objective - Vital Signs Vital signs: Vital Signs Temp 98.1 F 10/14/21 13:22 Pulse 86 10/14/21 13:22 Resp 16 10/14/21 13:22 BP 142/94 10/14/21 13:22 Pulse Ox Intake & Output 10/13/21 10/14/21 10/14/21 18:59 06:59 18:59 Weight 134.263 kg Assessment/Plan Plan: Date: 10/14/21 Initial Weight: 160.118 kg Initial BMI: 52.1 Current Weight: 134.263 kg Current BMI: 43.7 Type of Surgery: Total Volume in Band: Previous Volume: Volume Removed: Volume Added: Band Size:
== END ==
LOC: BARWHC3 13:10
PROVIDERS: ATTEND Surgery Plastic and Reconstructive Surgery
DX: E66.01 Morbid (severe) obesity due to excess calories (principal); Z68.41 Body mass index [BMI] 40.0-44.9, adult; F43.10 Post-traumatic stress disorder, unspecified; K21.9 Gastro-esophageal reflux disease without esophagitis; I10 Essential (primary) hypertension; G47.33 Obstructive sleep apnea (adult) (pediatric); M47.9 Spondylosis, unspecified; M17.0 Bilateral primary osteoarthritis of knee; E61.1 Iron deficiency; R94.5 Abnormal results of liver function studies; E60 Dietary zinc deficiency; E55.9 Vitamin D deficiency, unspecified; E78.00 Pure hypercholesterolemia, unspecified; E78.1 Pure hyperglyceridemia; Z98.84 Bariatric surgery status; Z83.79 Family history of other diseases of the digestive system; Z88.0 Allergy status to penicillin
CPT/HCPCS: 99211

== ENCOUNTER → 2021-11-12 | Outpatient (CLI) | payer OTHER ==
--- NOTE | 2021-11-12 12:31 | MR ---
EXAMINATION TYPE: MR lumbar spine wo con DATE OF EXAM: 11/12/2021 12:22 PM COMPARISON: NONE HISTORY: Low back pain for 10 years that goes into left hip down leg for past 6 months. Multiplanar, MultiSpin echo imaging of the lumbar spine was performed. L1-L2: Normal disc appearance without desiccation. No herniation, protrusion or disc bulging. No ca nal stenosis is present. Foramina are patent bilaterally. L2-L3: Mild to moderate decreased signal and loss of height compatible with degenerative disc disease . Broad-based posterior disc bulge with effacement of the ventral thecal sac. No evidence for disc he rniation or protrusion. No evidence for central stenosis or foraminal encroachment. L3-L4: Mild to moderate decreased signal and loss of height compatible with degenerative disc disease . Broad-based posterior disc bulge with greater component bilaterally into the left or a small protru teresa is difficult to exclude left foraminal encroachment and mild left lateral recess stenosis. L4-L5: Normal disc appearance without desiccation. No herniation, protrusion or disc bulging. No ca nal stenosis is present. Foramina are patent bilaterally. L5-S1: Normal disc appearance without desiccation. No herniation, protrusion or disc bulging. No ca nal stenosis is present. Foramina are patent bilaterally. Lumbar segments are intact. No paraspinal masses are identified. Conus medullaris has a normal appe arance. IMPRESSION: 1. Degenerative disc disease as discussed. 2. Posterior disc bulging at L2-3 and L3-4. At L3-4 there is a greater component far laterally to the left or a cannot exclude a small disc protrusion resulting in left lateral recess stenosis and left foraminal encroachment.
== END | disposition home or self-care (01) ==
LOC: RADMRIMAIN 11:00
PROVIDERS: ATTEND Physician Assistant Medical
DX: M51.36 Other intervertebral disc degeneration, lumbar region (principal); M51.26 Other intervertebral disc displacement, lumbar region
CPT/HCPCS: 72148

== ENCOUNTER → 2022-04-09 | Outpatient (CLI) | payer BC | LOC: NEUROMAIN 07:53 | PROVIDERS: ATTEND Family Medicine | DX: G25.3 Myoclonus (principal); Z88.0 Allergy status to penicillin | CPT/HCPCS: 95819 ==

== ENCOUNTER → 2023-10-01 | Outpatient (CLI) | payer BC ==
[2023-10-01 13:21] LABS: HCT 43.3 % (39.6-50.0); HGB 14.6 g/dL (13.0-17.0); MCHC 33.7 g/dL (32.0-37.0); MCV 89.1 FL (80.0-97.0); NRBC Per 100 WBC 0 X 10*3/uL (0.00-0.01); Platelet Count 195 X 10*3/uL (140-440); RBC 4.86 X 10*6/uL (4.40-5.60); RDW 12.5 % (11.5-14.5); WBC 7.66 X 10*3/uL (4.50-10.00)
[2023-10-01 13:49] LABS: ALT 36 U/L (10-49); AST 22 U/L (14-35); Albumin 4.3 g/dL (3.8-4.9); Albumin/Globulin Ratio 1.59 Ratio (1.60-3.17); Alkaline Phosphatase 67 U/L (41-126); Calcium 9.4 mg/dL (8.7-10.3); Carbon Dioxide 27.4 mmol/L (21.6-31.8); Chloride 103 mmol/L (96-109); Chol/HDL Ratio 3.35 Ratio; Globulin 2.7 g/dL (1.6-3.3); Glucose 83 mg/dL (70-110); Potassium 4.2 mmol/L (3.5-5.5); Sodium 140 mmol/L (135-145); Total Bilirubin 0.6 mg/dL (0.3-1.2); VLDL Calculation 17.08 mg/dL (5.00-40.00)
== END | disposition home or self-care (01) ==
LOC: LABWHC1 08:34
PROVIDERS: ATTEND Family Medicine
DX: R53.83 Other fatigue (principal); R73.03 Prediabetes
CPT/HCPCS: 36415; 80053; 80061; 82306; 82607; 83036; 84443; 85027

== ENCOUNTER 2024-06-25 04:16 | Emergency (ER) | payer BC, OTHER ==
[2024-06-25 04:25] VITALS: RESP 18; TEMP 98.4
--- NOTE | 2024-06-25 04:44 | ED ---
General Adult HPI - General Chief complaint: Urogenital Stated complaint: ABD, Back & Groin Pain Time Seen by Provider: 06/25/24 04:29 Source: patient Mode of arrival: ambulatory Limitations: no limitations - History of Present Illness Initial comments: Patient is a 38-year-old gentleman past medical history prior gastric sleeve presenting today for right testicular pain radiating up into the right lower quadrant of his abdomen and right flank. Started yesterday but became more severe tonight waking him out of sleep. Endorses associated nausea but denies vomiting. Last bowel movement was yesterday, normal soft nonbloody stool. No hematochezia. Denies fevers and chills. Denies chest pain or shortness of breath. Denies dysuria, hematuria urinary frequency. Did notice that he had to strain to urinate earlier today. Denies penile discharge, history of STIs or concerns for STIs. Pain initially began when patient was cooking, earlier in the day yesterday. - Related Data Previous Rx's Medication Instructions Recorded Omeprazole [PriLOSEC] 40 mg PO DAILY #14 cap 07/29/21 Allergies Allergy/AdvReac Type Severity Reaction Status Date / Time Penicillins Allergy Rash/Hives Verified 06/25/24 04:24 Review of Systems ROS Statement: Those systems with pertinent positive or pertinent negative responses have been documented in the HPI. ROS Other: All systems not noted in ROS Statement are negative. Past Medical History Past Medical History: GERD/Reflux, Hypertension, Musculoskeletal Disorder, Sleep Apnea/CPAP/BIPAP Additional Past Medical History / Comment(s): Blood in stools; uses CPAP; Back pain History of Any Multi-Drug Resistant Organisms: None Reported Past Surgical History: No Surgical Hx Reported, Bariatric Surgery Additional Past Surgical History / Comment(s): Nasal sx.; wisdom teeth sleeve gastrectomy 04-27-21 Past Anesthesia/Blood Transfusion Reactions: No Reported Reaction Additional Past Anesthesia/Blood Transfusion Reaction / Comment(s): "irritable after anesthesia" Past Psychological History: PTSD Smoking Status: Never smoker Past Alcohol Use History: Rare Past Drug Use History: None Reported - Past Family History Mother Family Medical History: No Reported History Father Family Medical History: Deep Vein Thrombosis (DVT) General Exam - General Exam Comments Initial Comments: PE: CONSTITUTIONAL: Mild distress, somewhat ill appearing, nontoxic, awake and alert, uncomfortable SKIN: Warm, dry, no jaundice, hives or petechiae, no erythema or overlying skin changes across abdomen or scrotum or perineum EYES: Pupils are equally round, extraocular movements intact without nystagmus, clear conjunctiva, non-icteric sclera HENT: Normocephalic, atraumatic, moist mucus membranes, oropharynx clear without exudates NECK: , Full range of motion, normal appearance PULMONARY: Clear to auscultation without wheezes, rhonchi, or rales, normal excursion, no accessory muscle use and no stridor CARDIOVASCULAR: Regular rate, rhythm, normal S1 and S2. No appreciated murmurs, rubs or gallops. Strong radial pulses with intact distal perfusion. No lower extremity edema GASTROINTESTINAL: Soft, active bowel sounds throughout, TTP RLQ, +Right CVA TTP, TTP right inguinal region with fullness of the right inguinal region, questionable right inguinal hernia, no other abdominal hernias palpated non-distended, no palpable masses, no rebound. Guarding with palpation of the abdomen throughout, No hepatosplenomegaly GENITOURINARY: Performed with Lacho field crop technical officer, as head chef, penis shows no abnormalities, erythema or skin changes, scrotum is nonerythematous, right testicle does appear to be higher riding than right but normal testicular lie, TTP right testicle, perineum is nontender without crepitus, questionable right inguinal hernia/ palpable fullness, does not reduce with attempt reduction MUSCULOSKELETAL: Extremities have no gross deformity, no edema, redness, or swelling. No calf swelling NEUROLOGIC:_a/o x 3, GCS 15, normal mentation and speech. Moves all extremities x 4 without motor or sensory deficit PSYCHIATRIC:_normal mood and affect, thought process is clear and linear Limitations: no limitations Course Vital Signs 06/25/24 06/25/24 04:21 07:24 Temperature 98.4 F Pulse Rate 64 73 Respiratory 18 18 Rate Blood Pressure 205/116 141/90 O2 Sat by Pulse 99 99 Oximetry Medical Decision Making - Medical Decision Making Was pt. sent in by a medical professional or institution (, PA, GRAIN OILSEED OR PASTURE FARM WORKER, urgent care, hospital, or [facility]...) When possible be specific @ -No Did you speak to anyone other than the patient for history (EMS, parent, family, police, friend...)? What history was obtained from this source @ -No Did you review nursing and triage notes (agree or disagree)? Why? @ -I reviewed and agree with nursing and triage notes Were old charts reviewed (outside hosp., previous admission, EMS record, old EKG, old radiological studies, urgent care reports/EKG's, [facility] records)? Report findings @ -Medical records reviewed Differential Diagnosis (chest pain, altered mental status, abdominal pain women, abdominal pain men, vaginal bleeding, weakness, fever, dyspnea, syncope, headache, dizziness, GI bleed, back pain, seizure, CVA, palpatations, mental health, musculoskeletal)? @Differential Abdominal Pain Men: Appendicitis, cholecystitis, diverticulosis, ischemic bowel, pancreatitis, hepatitis, UTI, gastroenteritis, AAA, incarcerated hernia, bowel obstruction, constipation, inflammatory bowel, hepatitis, peptic ulcer disease, splenic infarction, perforated viscus, testicular torsion, this is not meant to be an all-inclusive list EKG interpreted by me (3pts min.). @ -As above X-rays interpreted by me (1pt min.). @ -None done CT interpreted by me (1pt min.). @ -None done U/S interpreted by me (1pt. min.). @ -None done What testing was considered but not performed or refused? (CT, X-rays, U/S, labs)? Why? @ -None What meds were considered but not given or refused? Why? @ -None Did you discuss the management of the patient with other professionals (professionals i.e. , PA, GRAIN OILSEED OR PASTURE FARM WORKER, lab, RT, psych nurse, social director, senior information security engineer, teacher, seal delivery vehicle officer, supervisor case loading)? Give summary @ -No Was smoking cessation discussed for >3mins.? @ -No Was critical care preformed (if so, how long)? @ -No Were there social determinants of health that impacted care today? How? (Homelessness, low income, unemployed, alcoholism, drug addiction, transportation, low edu. Level, literacy, decrease access to med. care, halfway, rehab)? @ -No Was there de-escalation of care discussed even if they declined (Discuss DNR or withdrawal of care, Hospice)? @ -No What co-morbidities impacted this encounter? (DM, HTN, Smoking, COPD, CAD, Cancer, CVA, ARF, Chemo, Hep., AIDS, mental health diagnosis, sleep apnea, morbid obesity)? @ -None Was patient admitted / discharged? Hospital course, mention meds given and route, prescriptions, significant lab abnormalities, going to OR and other pertinent info. @ -Hospital course discharged Patient is a 38-year-old gentleman presenting for right lower quadrant pain radiating to his right testicle x 1 day. On my assessment patient is in acute distress and painful appearing. exam performed with field crop technical officerLacho vazquez at bedside. Show tenderness palpation of the right scrotum and right groin. Possible hernia palpated in right inguinal region, no overlying skin changes. Concern for testicular torsion versus incarcerated hernia versus ureterolithiasis versus appendicitis. Additional differential as noted above. Ordered labs, fluids, pain control urinalysis, CT abdomen pelvis and ultrasound of the scrotum. Patient is agreeable plan. Ultrasound showed no testicular torsion. Urinalysis without signs of infection. Labs and imaging reviewed. Grossly within normal limits. Abnormal values not concerning for acute pathology related to presenting complaint.. Lactic is not elevated- 1.3. CT abdomen pelvis without acute process. On my reassessment patient endorses resolution of symptoms. We discussed plan for discharge home. I discussed the possibility of a spontaneously reduced hernia or spontaneously resolved testicular torsion and we discussed signs and symptoms to monitor for warranting return to emergency department. Patient is comfortable and agreeable discharge at this point. In my medical judgment there is currently no evidence of an immediate life-threatening or surgical condition. Discharge is therefore indicated at this time. Discharge treatment instructions, follow up instructions, and appropriate emergency department return precautions were discussed with the patient and/or medical decision maker. Patient and/or medical decision maker expressed understanding of and agreed with the treatment plan, follow up instructions, and emergency department return precaution. All patient's and/or medical decision maker's questions were answered. The patient was advised that a small risk still exists that a serious condition could develop and was therefore instructed to return to the ED for any changes in symptoms, persistent symptoms, inability to obtain proper follow-up or for any further concerns. Patient received verbal and written instructions for this condition. Undiagnosed new problem with uncertain prognosis? @ -No Drug Therapy requiring intensive monitoring for toxicity (Heparin, Nitro, Insulin, Cardizem)? @ -No Were any procedures done? @ -No Diagnosis/symptom? @ -Right groin pain Acute, or Chronic, or Acute on Chronic? @ -Acute Uncomplicated (without systemic symptoms) or Complicated (systemic symptoms)? @ -Complicated Side effects of treatment? @ -No Exacerbation, Progression, or Severe Exacerbation? @ -No Poses a threat to life or bodily function? How? (Chest pain, [place], [place], pneumonia, PE, COPD, DKA, ARF, appy, cholecystitis, CVA, Diverticulitis, Homicidal, Suicidal, threat to staff... and all critical care pts) @ -No - Lab Data Result diagrams: 06/25/24 05:10 06/25/24 05:10 Lab Results 06/25/24 06/25/24 06/25/24 Range/Units 05:10 05:10 06:20 WBC 7.5 (3.8-10.6) k/uL RBC 4.70 (4.30-5.90) m/uL Hgb 14.0 (13.0-17.5) gm/dL Hct 41.0 (39.0-53.0) % MCV 87.2 (80.0-100.0) fL MCH 29.8 (25.0-35.0) pg MCHC 34.2 (31.0-37.0) g/dL RDW 12.9 (11.5-15.5) % Plt Count 192 (150-450) k/uL MPV 8.0 Neutrophils % 52 % Lymphocytes % 36 % Monocytes % 5 % Eosinophils % 5 % Basophils % 1 % Neutrophils # 3.9 (1.3-7.7) k/uL Lymphocytes # 2.7 (1.0-4.8) k/uL Monocytes # 0.4 (0-1.0) k/uL Eosinophils # 0.4 (0-0.7) k/uL Basophils # 0.1 (0-0.2) k/uL PT 10.3 (10.0-12.5) sec INR 0.9 (<1.2) APTT 21.8 L (22.0-30.0) sec Sodium 139 (137-145) mmol/L Potassium 3.8 (3.5-5.1) mmol/L Chloride 110 H (98-107) mmol/L Carbon Dioxide 21 L (22-30) mmol/L Anion Gap 8 mmol/L BUN 14 (9-20) mg/dL Creatinine 0.77 (0.66-1.25) mg/dL Est GFR (CKD-EPI)AfAm >90 (>60 ml/min/1.73 sqM) Est GFR (CKD-EPI)NonAf >90 (>60 ml/min/1.73 sqM) Glucose 95 (74-99) mg/dL Plasma Lactic Acid Vic (0.7-2.0) mmol/L Calcium 8.6 (8.4-10.2) mg/dL Total Bilirubin 0.7 (0.2-1.3) mg/dL AST 35 (17-59) U/L ALT 56 H (4-49) U/L Alkaline Phosphatase 83 (38-126) U/L Total Protein 7.1 (6.3-8.2) g/dL Albumin 4.0 (3.5-5.0) g/dL Amylase 41 (30-110) U/L Lipase 113 (23-300) U/L Urine Color Urine Appearance (Clear) Urine pH (5.0-8.0) Ur Specific [place] (1.001-1.035) Urine Protein (Negative) Urine Glucose (UA) (Negative) Urine Ketones (Negative) Urine Blood (Negative) Urine Nitrite (Negative) Urine Bilirubin (Negative) Urine Urobilinogen (<2.0) mg/dL Ur Leukocyte Esterase (Negative) 06/25/24 06/25/24 Range/Units 06:20 06:20 WBC (3.8-10.6) k/uL RBC (4.30-5.90) m/uL Hgb (13.0-17.5) gm/dL Hct (39.0-53.0) % MCV (80.0-100.0) fL MCH (25.0-35.0) pg MCHC (31.0-37.0) g/dL RDW (11.5-15.5) % Plt Count (150-450) k/uL MPV Neutrophils % % Lymphocytes % % Monocytes % % Eosinophils % % Basophils % % Neutrophils # (1.3-7.7) k/uL Lymphocytes # (1.0-4.8) k/uL Monocytes # (0-1.0) k/uL Eosinophils # (0-0.7) k/uL Basophils # (0-0.2) k/uL PT (10.0-12.5) sec INR (<1.2) APTT (22.0-30.0) sec Sodium (137-145) mmol/L Potassium (3.5-5.1) mmol/L Chloride (98-107) mmol/L Carbon Dioxide (22-30) mmol/L Anion Gap mmol/L BUN (9-20) mg/dL Creatinine (0.66-1.25) mg/dL Est GFR (CKD-EPI)AfAm (>60 ml/min/1.73 sqM) Est GFR (CKD-EPI)NonAf (>60 ml/min/1.73 sqM) Glucose (74-99) mg/dL Plasma Lactic Acid Vic 1.3 (0.7-2.0) mmol/L Calcium (8.4-10.2) mg/dL Total Bilirubin (0.2-1.3) mg/dL AST (17-59) U/L ALT (4-49) U/L Alkaline Phosphatase (38-126) U/L Total Protein (6.3-8.2) g/dL Albumin (3.5-5.0) g/dL Amylase (30-110) U/L Lipase (23-300) U/L Urine Color Colorless Urine Appearance Clear (Clear) Urine pH 5.5 (5.0-8.0) Ur Specific [place] 1.023 (1.001-1.035) Urine Protein Negative (Negative) Urine Glucose (UA) Negative (Negative) Urine Ketones Negative (Negative) Urine Blood Negative (Negative) Urine Nitrite Negative (Negative) Urine Bilirubin Negative (Negative) Urine Urobilinogen <2.0 (<2.0) mg/dL Ur Leukocyte Esterase Negative (Negative) Disposition Clinical Impression: Right groin pain Disposition: HOME SELF-CARE Condition: Good Instructions (If sedation given, give patient instructions): Testicular Torsion (ED), Inguinal Hernia (ED), Testicle Pain (ED) Additional Instructions: Every disease is a spectrum and a small chance still exists that a serious condition could develop, for this reason, please monitor yourself closely for new, changing or worsening symptoms, return of symptoms, swelling in your testicle, along your right groin or abdomen, skin changes redness or rashes over these areas, blood in your urine, burning with urination, fever, inability to tolerate/keep down fluids or your medications, inability to follow up with outpatient providers as instructed and should you experience these symptoms or should you have any further concerns for your wellbeing please return to the ED or call 911 immediately. Please follow up with your surgeon regarding possibility of spontaneously resolved inguinal hernia. If you are unable to follow up with your general surgeon, please follow up with general surgeon listed in discharge paperwork. Your pain can be treated with ibuprofen and acetaminophen. You can take up to 400-600 mg of ibuprofen (Advil, Motrin) 3 times daily (every 8 hours) but can also use lower doses if this relieves your pain. Some people prefer naproxen (Aleve, Naprosyn) which can be taken in doses of 500 mg up to twice a day. Do not take both of these medicines together, and do not combine either with ketorolac (Toradol), meloxicam (Mobic), or indomethacin (Tivorbex). Some people can develop stomach discomfort with higher doses of either ibuprofen or naproxen, if this develops decrease your dose or stop taking it. If you need to take this dose daily for more than a week, please schedule an appointment for re-evaluation with your PCP. Please take these medications with food. You can take up to 1000 mg of acetaminophen (Tylenol) every 6 hours. Be careful as this is included in some medicines like Nyquil, [place], Percocet, Vicodin, STANBACK, Goody's Powders, and Excedrin. You can also use lidocaine patches for topical pain. You can purchase 4% patches over the counter at most drug stores. These can be helpful for pain from your muscles or bones. PLEASE call your primary care physician as soon as possible to arrange / discuss plan for followup appointment. Appointment in the next 1-3 days is strongly encouraged if possible. PLEASE let us know here before you leave if there is anything further we can do to be of any assistance. Take care and feel Better! Is patient prescribed a controlled substance at d/c from ED?: No Referrals: Fatmata Reed DO [Primary Care Provider] - 1-2 days Madison Hammond DO [Doctor of Osteopathic Medicine] - 1-2 days
[2024-06-25] MEDS: KETOROLAC 15 MG/ML 1 ML VIAL IVP STA (05:04)
[2024-06-25] MEDS: ONDANSETRON 4 MG/2 ML VIAL IVP STA (05:04)
[2024-06-25] MEDS: SODIUM CHLORIDE 0.9% 1,000 ML IV STA (05:05)
[2024-06-25] MEDS: MORPHINE SULFATE 4 MG/ML SYRINGE IVP STA (05:05)
[2024-06-25 05:23] LABS: Basophils # (A) 0.1 k/uL (0-0.2); Basophils % (A) 1 %; Eosinophils # (A) 0.4 k/uL (0-0.7); Eosinophils % (A) 5 %; Lymphocytes # (A) 2.7 k/uL (1.0-4.8); Lymphocytes % (A) 36 %; MCH 29.8 pg (25.0-35.0); MCHC 34.2 g/dL (31.0-37.0); MCV 87.2 fL (80.0-100.0); Monocytes # (A) 0.4 k/uL (0-1.0); Monocytes % (A) 5 %; Neutrophils # (A) 3.9 k/uL (1.3-7.7); Neutrophils % (A) 52 %; Platelet Count 192 k/uL (150-450); RDW 12.9 % (11.5-15.5); WBC 7.5 k/uL (3.8-10.6)
[2024-06-25 05:34] LABS: ALT 56 U/L (4-49); AST 35 U/L (17-59); African American GFR (CKD) >90 (>60 ml/min/1.73 sqM); Alkaline Phosphatase 83 U/L (38-126); Amylase 41 U/L (30-110); Anion Gap 8 mmol/L; Blood Urea Nitrogen 14 mg/dL (9-20); Calcium 8.6 mg/dL (8.4-10.2); Carbon Dioxide 21 mmol/L (22-30); Chloride 110 mmol/L (98-107); Glucose 95 mg/dL (74-99); Lipase 113 U/L (23-300); Non-African American GFR(CKD) >90 (>60 ml/min/1.73 sqM); Potassium 3.8 mmol/L (3.5-5.1); Sodium 139 mmol/L (137-145); Total Bilirubin 0.7 mg/dL (0.2-1.3); Total Protein 7.1 g/dL (6.3-8.2)
--- NOTE | 2024-06-25 06:01 | US ---
EXAMINATION TYPE: US scrotum with doppler. DATE OF EXAM: 06/25/2024 COMPARISON: NONE CLINICAL INDICATION: Male, 38 years old with history of R groin pain, Right sided pain, no injury TECHNIQUE: Grayscale, color Doppler and spectral Doppler imaging of the scrotum. FINDINGS: EXAM MEASUREMENTS: TESTICLES: Right Testicle: 4.8 x 3.4 x 3.1 cm Left Testicle: 4.9 x 3.3 x 2.8 cm EPIDIDYMIS HEAD: Right Epididymis: 0.7 x 0.8 x 0.8 cm Left Epididymis: 1.0 x 0.9 x 1.0 cm Doppler performed to assess for testicular vascularity; good bilateral color flow and waveforms are s een. Presence of hydroceles: Bilateral tiny Presence of varicoceles: No IMPRESSION: Symmetric blood flow to both testicles is noted. [facility], , 06/25/2024 5:59 AM
--- NOTE | 2024-06-25 06:17 | CT ---
EXAMINATION TYPE: CT abdomen pelvis w con DATE OF EXAM: 06/25/2024 COMPARISON: Head CT 2018 HISTORY: Pt woke up out of sleep today with CC of lower back back pain that radiates toward abdo men and groin all on R side; no radiation to L side. Nausea without emesis since waking at 0400. Pt reports pt has to force urine more than typical. No hematuria per pt report. CT DLP: 3914.3 mGycm, Automated Exposure Control for Dose Reduction was Utilized. CONTRAST: CT scan of the abdomen and pelvis is performed without oral and with IV Contrast, patient injected wi th 100ml mL of Isovue 300. FINDINGS: LUNG BASES: No significant abnormality is appreciated. LIVER/GB: No significant abnormality is appreciated. PANCREAS: No significant abnormality is seen. SPLEEN: No significant abnormality is seen. ADRENALS: No significant abnormality is seen. KIDNEYS: Symmetric corticomedullary uptake and excretion without hydronephrosis seen bilaterally. A f ew subcentimeter hypodense lesions scattered throughout the left kidney are too small to further flakito acterize but presumed benign. Occasional tiny calcified pelvic phlebolith is redemonstrated. BOWEL: Surgical changes from gastric sleeve are now present. No abnormal small or large bowel dilatat ion PROSTATE/SEMINAL VESICLES: No gross abnormality seen. LYMPH NODES: No greater than 1cm abdominal or pelvic lymph nodes are appreciated. OSSEOUS STRUCTURES: [id number] multilevel spurring is redemonstrated. OTHER: No significant additional abnormality is seen. IMPRESSION: No right groin hernia. No significant new or acute finding is seen to account for patien t's clinical symptoms. [facility], , 06/25/2024 6:14 AM
[2024-06-25 06:35] LABS: Appearance,Urine Clear (Clear); Bilirubin,Urine Negative (Negative); Blood,Urine Negative (Negative); Color,Urine Colorless; Glucose,Urine (UA) Negative (Negative); Ketones,Urine Negative (Negative); Leukocyte Esterase,Urine Negative (Negative); Nitrite,Urine Negative (Negative); PH, Urine 5.5 (5.0-8.0); Protein,Urine Negative (Negative); Specific Gravity,Urine 1.023 (1.001-1.035); Urobilinogen,Urine <2.0 mg/dL (<2.0)
[2024-06-25 06:51] LABS: INR 0.9 (<1.2); Prothrombin Time 10.3 sec (10.0-12.5)
[2024-06-25 06:55] LABS: Partial Thromboplastin Time 21.8 sec (22.0-30.0)
[2024-06-25 07:25] VITALS: BP 141/90; PULSE 73
== END 2024-06-25 07:25 | disposition home or self-care (01) ==
LOC: EC 04:16
DX: R10.31 Right lower quadrant pain (principal); Z88.0 Allergy status to penicillin
CPT/HCPCS: 36415; 80053; 82150; 83605; 83690; 85025; 85610; 85730; 81003; 93975; 76870; 74177; 99284; 96374; 96375 ×2; 96361; J2270; J2405; J1885; Q9967

== ENCOUNTER → 2024-09-26 | Outpatient (CLI) | payer OTHER ==
[2024-09-26 07:55] VITALS: BP 144/104; PULSE 69; RESP 16
--- NOTE | 2024-09-26 15:43 | P.PAINPG ---
PQRS Measure Charge Sheet Comment: HISTORY OF PRESENT ILLNESS: A 39 yr old male w at side as a referral from the [facility] presents today w severe and chronic LBP > 1 yr secondary to radiculopathy, spondylosis and facet arthropathy without myelopathy for evaluation. Pt states pain level is provoked at 7 /10 in intensity, constant, localized in the lumbar spine, predominantly axial, achy in character w occasional shooting pain towards the L hip & knee as well as the R groin and RLE. Pain is provoked by bending, lifting. Pain is alleviated by PT x 6 wks which ended in 2022, physician guided home exercises daily since 2022, chiropractic treatments monthly since 2021 which he is currently in, heat/ ice, medications ([place], Neurontin), repositioning and rest . Oswestry axial pain score at 26. PMH: OA, GERD, HTN, REBECCA, PTS PSH: Sleeve Gastrectomy (2020), Nasal Surgery, Mays Teeth Extraction SH: Never smoker, Rare ETOH use, No illicit drug use FH: [place]- No Reported History. FA- DVT All: See list Meds: See list REVIEW OF ORGAN SYSTEMS: CONSTITUTIONAL: No fevers or chills. No recent weight loss. NEUROLOGICAL: + numbness and tingling along the distal extremities. No seizure disorders or headaches. MUSCULOSKELETAL: + pain PSYCHIATRIC: Denies current depression or suicidal thoughts. Physical Examinations : Constitutional : Cooperative , not in acute distress . Neurologic : Cranial nerve II to XII intact. No focal neurological deficits. Psychiatric : alert & oriented x 3. Matching mood & appropriate affect. Judgment & insight intact. Musculoskeletal : Cervical Spine Motor strength in the deltoid and biceps: Normal right side. Normal Left side Motor strength biceps and the wrist extensors: Normal right side . Normal left side Motor strength in the triceps muscle: Normal right side. Normal left side Deep tendon reflexes: Normal at the biceps. Normal at Brachioradialis. Normal at triceps Vertebral body tenderness to deep palpation over Cervical facet loading test: positive bilaterally Spurling test: positive bilaterally Neck distraction test: positive bilaterally Manuel sign: positive bilaterally Lumbar spine Motor strength lower extremities ,thigh and legs 5/5 Right side , 5/5 Left side Deep tendon reflexes : Normal Knee Jerk. Normal Ankle Jerk Vertebral body tenderness over L3 Reyes Test positive BL L3-L4 Lumbar facet Loading Test: positive Right / positive Left Range of motion of the lumbar spine Flexion 30 degrees, extension 10 degrees Straight Leg Raise test: Left/ Right positive at degrees Jesi test: positive right / positive left. Severe tenderness over the Sacroiliac joint on the Right / Left sides Gaenslen test: positive bilaterally Seated flexion test: positive bilaterally. Sacral spine : Severe tenderness over the Sacroiliac joint: right side / left side Range of motion: Flexion of the lumbar spine <60 degrees Range of motion: Extension of the lumbar spine <20 degrees Gaenslen's Test positive Jesi test: positive right side / left side Thigh Thrust Test Sacral Thrust Test Imaging: MRI non contrast from 07/13/24 reviewed Assessment/ Plan : L3-L4 radiculopathy, multi disc radiculopathy Recommendation of KRIS L3-L4 #1. Risks, benefits of procedure discussed and patient verbalized understanding. Admits to anti- coagulant use or medical history of diabetes. Protocol for discontinuation/ continuation of medications brandon procedure discussed. All questions answered. I have spent greater than 30 minutes on patient care today. Dr Srivastava was available by phone for the evaluation of this patient. The time was used to review the medical records including relevant urine studies and Prescription history (MAPs), review of the available imaging, evaluation and examination of the patient, coordination of care with the medical staff and if applicable referring physicians, as well as creation of the medical record PQRS Narrative: Smoking Status Never smoker Home Medications: Ambulatory Orders Omeprazole [PriLOSEC] 40 mg PO DAILY #14 cap 07/29/21 Gabapentin [Neurontin] 300 mg PO BID 09/26/24 Controlled Substance Measures - Controlled Substance Measures Is patient prescribed a controlled substance at discharge?: No
== END ==
LOC: PNWHC3 07:31
PROVIDERS: ATTEND Specialist
DX: M51.16 Intervertebral disc disorders with radiculopathy, lumbar region (principal); Z88.0 Allergy status to penicillin
CPT/HCPCS: 99211

== ENCOUNTER → 2024-11-15 | Outpatient (CLI) | payer OTHER ==
[2024-11-15 10:08] VITALS: BP 147/94; PULSE 77; RESP 16; TEMP 96.9
--- NOTE | 2024-11-15 14:03 | P.PAINPG ---
PQRS Measure Charge Sheet Comment: HISTORY OF PRESENT ILLNESS: A 39 yr old male w at side as a referral from the [facility] presents today w severe and chronic LBP x 2 yr secondary to radiculopathy, spondylosis and facet arthropathy without myelopathy for evaluation s/p KRIS L3-L4 #1. Pt states he experienced 80% pain relief x 1 mo s/p procedure. Pt states pain level is provoked at 5-7 /10 in intensity, constant, localized in the lumbar spine, predominantly axial, achy in character w occasional shooting pain towards the L hip & knee as well as the R groin and RLE. Pain is provoked by bending, lifting. Pain is alleviated by PT x 6 wks which ended in 2022, physician guided home exercises daily since 2022, chiropractic treatments monthly since 2021 which he is currently in, heat/ ice, medications , repositioning and rest . Inteventional procedures include KRIS L3-L4 x1 Medications include [place], Neurontin REVIEW OF ORGAN SYSTEMS: CONSTITUTIONAL: No fevers or chills. No recent weight loss. NEUROLOGICAL: + numbness and tingling along the distal extremities. No seizure disorders or headaches. MUSCULOSKELETAL: + pain PSYCHIATRIC: Denies current depression or suicidal thoughts. Physical Examinations : Constitutional : Cooperative , not in acute distress . Neurologic : Cranial nerve II to XII intact. No focal neurological deficits. Psychiatric : alert & oriented x 3. Matching mood & appropriate affect. Judgment & insight intact. Musculoskeletal : Cervical Spine Motor strength in the deltoid and biceps: Normal right side. Normal Left side Motor strength biceps and the wrist extensors: Normal right side . Normal left side Motor strength in the triceps muscle: Normal right side. Normal left side Deep tendon reflexes: Normal at the biceps. Normal at Brachioradialis. Normal at triceps Vertebral body tenderness to deep palpation over Cervical facet loading test: positive bilaterally Spurling test: positive bilaterally Neck distraction test: positive bilaterally Manuel sign: positive bilaterally Lumbar spine Motor strength lower extremities ,thigh and legs 5/5 Right side , 5/5 Left side Deep tendon reflexes : Normal Knee Jerk. Normal Ankle Jerk Vertebral body tenderness over L3 Reyes Test positive BL L3-L4 Lumbar facet Loading Test: positive Right / positive Left Range of motion of the lumbar spine Flexion 30 degrees, extension 10 degrees Straight Leg Raise test: Left/ Right positive at degrees Jesi test: positive right / positive left. Severe tenderness over the Sacroiliac joint on the Right / Left sides Gaenslen test: positive bilaterally Seated flexion test: positive bilaterally. Sacral spine : Severe tenderness over the Sacroiliac joint: right side / left side Range of motion: Flexion of the lumbar spine <60 degrees Range of motion: Extension of the lumbar spine <20 degrees Gaenslen's Test positive Jesi test: positive right side / left side Thigh Thrust Test Sacral Thrust Test Imaging: MRI non contrast from 07/13/24 reviewed Assessment/ Plan : L3-L4 radiculopathy, multi disc radiculopathy Will manage residual pain and may RTC on an as needed basis. All questions answered. I have spent greater than 30 minutes on patient care today. Dr Srivastava was available by phone for the evaluation of this patient. The time was used to review the medical records including relevant urine studies and Prescription history (MAPs), review of the available imaging, evaluation and examination of the patient, coordination of care with the medical staff and if applicable referring physicians, as well as creation of the medical record PQRS Narrative: Smoking Status Never smoker Hx Alcohol Use (MH) No Home Medications: Ambulatory Orders Omeprazole [PriLOSEC] 40 mg PO DAILY #14 cap 07/29/21 Gabapentin [Neurontin] 300 mg PO BID 09/26/24 ARIPiprazole [Abilify] 5 mg PO DAILY 10/17/24 Baclofen(Unk) 0.5 tab PO DIRECTED PRN 10/17/24 Hydrocodone-Acetamin 1 tab PO DAILY 10/17/24 Controlled Substance Measures - Controlled Substance Measures Is patient prescribed a controlled substance at discharge?: No
== END ==
LOC: PNWHC3 08:14
PROVIDERS: ATTEND Specialist
DX: M54.16 Radiculopathy, lumbar region (principal); Z88.0 Allergy status to penicillin
CPT/HCPCS: 99211

== ENCOUNTER 2024-12-14 06:59 | Day surgery (SDC) | payer OTHER ==
[2024-12-11 13:58] VITALS: BMI 50.2
[~2024-12-14 06:59] MED LIST changes: -ACETAMINOPHEN TAB 500 MG TAB PO PRN; -CHLORHEXIDINE GLUCONATE 15 ML CUP MUCOUS MEM PRN; -DEXAMETHASONE SOD PHOSPHATE 4 MG/ML 1 ML VIAL IV ONE; -ENOXAPARIN 40 MG/0.4 ML SYRINGE SQ PRN; -GABAPENTIN 300 MG CAP PO PRN; -HYDROmorphone 0.5 MG/0.5 ML SYRINGE IVP PRN; +LACTATED RINGERS 1,000 ML IV SCH; -MELOXICAM 7.5 MG TAB PO PRN; -ONDANSETRON 4 MG/2 ML VIAL IVP ONE; -PANTOPRAZOLE 40 MG/10 ML VIAL IVP PRN; -SCOPOLAMINE 1.5MG/72HR PATCH TRANSDERM PRN; -ceFAZolin 3 GM in SODIUM CHLORIDE 0.9% 100 ML IVPB PRN
[2024-12-14 07:14] VITALS: RESP 16; TEMP 96.7
[2024-12-14] MEDS ORDERED: IOPAMIDOL M300 15ML VIAL ONE (08:39)
[2024-12-14] MEDS ORDERED: methylPREDNISolone ACETATE 80 MG/ML 1 ML VIAL ONE (08:39)
--- NOTE | 2024-12-14 08:59 | P.PCN ---
Description of Procedure: PREOPERATIVE DIAGNOSIS: 1- Lumbar Degenerative Disc Diseases 2-Lumbar spondylosis with Facet arthropathy without myelopathy. 3-lumbar spinal stenosis POSTOPERATIVE DIAGNOSIS: 1-lumbar degenerative disc disease. 2-lumbar spondylosis with facet arthropathy without myelopathy. 3-lumbar spinal stenosis. PROCEDURE Injection of radio contrast material into L3-4 interspace, interpretation of epidurogram, injection of steroid at L3-4 epidural space under fluoroscopic guidance. ANESTHESIA: Lidocaine 1% subcutaneously. In OR continuous pulse ox, EKG, blood pressure and verbal communication was maintained with the patient. EBL: Minimal PROCEDURE INDICATION: Before the procedure were discussed with the patient detailed procedure, alternatives, complications including infection, bleeding, nerve damage, paralysis all of which could be permanent. Patient understands and all questions were answered. PROCEDURE DESCRIPTION : After getting consent, patient in OR in prone position. Back was prepped with chlorhexidine and draped in sterile fashion. After injecting 10 mL of 1% lidocaine subcutaneously, a 20-gauge Tuohy needle was introduced at L3-4 interspace with loss of resistance technique using a syringe filled with air. Negative CSF, negative blood, negative paresthesia. Needle position was confirmed with AP and lateral view of the fluoroscope. After repeat negative aspiration 2 mL of Omnipaque 200 water soluble contrast was injected. Contrast was noted in the epidural space. No contrast was noted into intrathecal or intravascular space. After repeat negative aspiration 6 mL solution was injected intermittently which consists of 5 mL of preservative-free normal saline mixed with 1 mL of 80 mg Depo-Medrol. Needle was withdrawn intact. Skin was cleansed and Band-Aids was applied. DISPOSITION / PLANS: The patient tolerated the procedure well. No complication. The patient was placed in a supine position and transferred to the recovery area in a stable condition for observation. There was no evidence of lower extremity motor or sensory deficit after the procedure. Patient was discharged from the recovery room after meeting discharge criteria. Home discharge instructions were given to the patient by the staff. The patient was reexamined prior to discharge. The patient will schedule a follow up in the clinic in 2-4 weeks.
[2024-12-14 09:19] VITALS: BP 137/90; PULSE 74
--- NOTE | 2024-12-14 18:56 | FL ---
EXAMINATION TYPE: FL guided pain mgmt statistic DATE OF EXAM: 12/14/2024 FLUOROSCOPY LESI pain low back. Fl time 9.8 secs dap [id number]. There is one image submitted. [facility], , 12/14/2024 6:53 PM
== END 2024-12-14 09:23 | disposition home or self-care (01) ==
LOC: ORPAIN 06:59
PROVIDERS: ATTEND Pain Medicine Interventional Pain Medicine
DX: M51.369 Other intervertebral disc degeneration, lumbar region without mention of lumbar back pain or lower extremity pain (principal); M47.816 Spondylosis without myelopathy or radiculopathy, lumbar region; M48.061 Spinal stenosis, lumbar region without neurogenic claudication
CPT/HCPCS: 62323; Q9967; J1010

== ENCOUNTER 2024-12-30 06:06 | Emergency (ER) | payer OTHER, BC ==
[2024-12-30 06:12] VITALS: RESP 18; TEMP 97.4
--- NOTE | 2024-12-30 06:28 | ED ---
Abdominal Pain HPI - General Chief Complaint: Abdominal Pain Stated Complaint: upper right stomach pain Time Seen by Provider: 12/30/24 06:28 Source: patient, family (), RN notes reviewed Mode of arrival: ambulatory - History of Present Illness Initial Comments: 39-year-old send the ER for evaluation of abdominal pain. Patient states he was woken from sleep around 5 AM with a sharp right upper quadrant/epigastric abdominal discomfort he reports there is mild radiation to his right flank. Patient reports he has been feeling nauseous with this sensation of almost vomiting but denies actually vomiting. He denies any diarrhea and reports his last normal bowel movement was last night prior to going to bed. Patient took a prescribed [place] without relief of discomfort. He is currently rating his pain a 10 out of 10. He denies any fevers, chills, chest pain, shortness of breath, urinary complaints or peripheral edema. Patient reports a history of a gastric bypass. No history of ulcerative colitis, Crohn's disease or diverticulitis. Denies scrotal pain or swelling or abnormal penile discharge. No other complaints - Related Data Home Medications Medication Instructions Recorded Confirmed Gabapentin [Neurontin] 300 mg PO BID 09/26/24 12/14/24 ARIPiprazole [Abilify] 5 mg PO DAILY 10/17/24 12/14/24 Baclofen 5 mg PO DIRECTED PRN 12/11/24 12/14/24 HYDROcodone/APAP 7.5-325MG [[place] 1 tab PO Q6HR PRN 12/11/24 12/14/24 7.5-325] Previous Rx's Medication Instructions Recorded Ondansetron Odt [Zofran Odt] 4 mg PO Q8HR PRN #10 tab 12/30/24 Allergies Allergy/AdvReac Type Severity Reaction Status Date / Time Penicillins Allergy Rash/Hives Verified 12/30/24 06:11 Review of Systems ROS Statement: Those systems with pertinent positive or pertinent negative responses have been documented in the HPI. ROS Other: All systems not noted in ROS Statement are negative. Past Medical History Past Medical History: GERD/Reflux, Hypertension, Liver Disease, Musculoskeletal Disorder, Sleep Apnea/CPAP/BIPAP Additional Past Medical History / Comment(s): Hx of blood in stools; Back pain, fatty liver History of Any Multi-Drug Resistant Organisms: None Reported Past Surgical History: Bariatric Surgery Additional Past Surgical History / Comment(s): Nasal surgery; wisdom teeth extraction, sleeve gastrectomy 04-27-21 Past Anesthesia/Blood Transfusion Reactions: Previous Problems w/ Anesthesia Additional Past Anesthesia/Blood Transfusion Reaction / Comment(s): "irritable after anesthesia"; no hx of blood transfusion Past Psychological History: PTSD Smoking Status: Never smoker Past Alcohol Use History: None Reported Past Drug Use History: None Reported - Past Family History Mother Family Medical History: No Reported History Father Family Medical History: Deep Vein Thrombosis (DVT) General Exam General appearance: alert, in no apparent distress Respiratory exam: Present: normal lung sounds bilaterally. Absent: respiratory distress, wheezes, rales, rhonchi, stridor Cardiovascular Exam: Present: regular rate, normal rhythm, normal heart sounds. Absent: systolic murmur, diastolic murmur, rubs, gallop, clicks GI/Abdominal exam: Present: soft, tenderness (RUQ), normal bowel sounds Extremities exam: Present: normal inspection, full ROM, normal capillary refill. Absent: tenderness, pedal edema, joint swelling, calf tenderness Neurological exam: Present: alert, oriented X3, CN II-XII intact Skin exam: Present: warm, dry, intact, normal color. Absent: rash Course Vital Signs 12/30/24 12/30/24 12/30/24 06:08 06:59 09:17 Temperature 97.4 F L Pulse Rate 62 68 86 Respiratory 18 18 18 Rate Blood Pressure 94/71 172/90 142/86 O2 Sat by Pulse 99 97 98 Oximetry Medical Decision Making - Medical Decision Making Was pt. sent in by a medical professional or institution (, PA, [employer], urgent care, hospital, or half-way...) When possible be specific @ -No Did you speak to anyone other than the patient for history (EMS, parent, family, police, friend...)? What history was obtained from this source @ -Patient's , at bedside, aiding in HPI and PMHX. Did you review nursing and triage notes (agree or disagree)? Why? @ -I reviewed and agree with nursing and triage notes Were old charts reviewed (outside hosp., previous admission, EMS record, old EKG, old radiological studies, urgent care reports/EKG's, half-way records)? Report findings @ -No old charts were reviewed Differential Diagnosis (chest pain, altered mental status, abdominal pain women, abdominal pain men, vaginal bleeding, weakness, fever, dyspnea, syncope, headache, dizziness, GI bleed, back pain, seizure, CVA, palpatations, mental health, musculoskeletal)? @ -Differential Abdominal Pain Men:Appendicitis, cholecystitis, diverticulosis, ischemic bowel, pancreatitis, hepatitis, UTI, gastroenteritis, AAA, incarcerated hernia, bowel obstruction, constipation, inflammatory bowel, hepatitis, peptic ulcer disease, splenic infarction, perforated viscus, testicular torsion, this is not meant to be an all-inclusive list EKG interpreted by me (3pts min.). @ -As above X-rays interpreted by me (1pt min.). @ -None done CT interpreted by me (1pt min.). @ -CT ab and pelvis significant for mild wall thickening terminal ileum could reflect inflammatory process versus poor distention. Otherwise no suspicious findings. Few subcentimeter hypodense lesions noted throughout left kidney presumed benign. U/S interpreted by me (1pt. min.). @ -None done What testing was considered but not performed or refused? (CT, X-rays, U/S, labs)? Why? @ -Gallbladder US considered however given patient's body habitus CT will be obtained as ultrasound may not be able to fully visualize gallbladder. What meds were considered but not given or refused? Why? @ -None Did you discuss the management of the patient with other professionals (professionals i.e. , PA, [employer], lab, RT, psych nurse, mental health social worker, senior ui designer, teacher, radio officer, field case manager)? Give summary @ -No Was smoking cessation discussed for >3mins.? @ -No Was critical care preformed (if so, how long)? @ -No Were there social determinants of health that impacted care today? How? (Homelessness, low income, unemployed, alcoholism, drug addiction, transportation, low edu. Level, literacy, decrease access to med. care, senior care, rehab)? @ -No Was there de-escalation of care discussed even if they declined (Discuss DNR or withdrawal of care, Hospice)? DNR status @ -No What co-morbidities impacted this encounter? (DM, HTN, Smoking, COPD, CAD, Cancer, CVA, ARF, Chemo, Hep., AIDS, mental health diagnosis, sleep apnea, morbid obesity)? @ -None Was patient admitted / discharged? Hospital course, mention meds given and route, prescriptions, significant lab abnormalities, going to OR and other pertinent info. @ -Discharge.59-year-old male presented the ER for evaluation of right upper quadrant abdominal discomfort. Upon arrival, vitals within acceptable limits. My evaluation, patient resting comfortably on stretcher no signs of acute distress. Abdominal exam remarkable for RUQ tenderness without rebound or guarding. Laboratory studies and CT abdomen pelvis will be obtained given patient's body habitus. Laboratory studies obtained unimpressive. WBC 7.62 lactic 1.3. No significant electrolyte abnormality. Hepatobiliary lab remarkable for ALT 72 total bilirubin 0.8. Urinalysis without evidence of infection. CT abdomen pelvis showing mild wall thickening of terminal ileum could reflect inflammatory process versus poor distention. EKG showing sinus rhythm. Patient received symptomatic control with IV fluids, Protonix, Zofran, Toradol and Dilaudid, with improvement upon reevaluation. Laboratory and CT findings discussed with patient, all questions answered. I advised close f ollow-up with general surgery for further evaluation of right upper quadrant abdominal discomfort. Patient discharged with the Zofran starter pack and Zofran prescription. Recommended [id number] ibuprofen and Tylenol for pain control. General surgery referral given. Return parameters discussed. Patient discharged stable condition. Patient verbally expressed understanding agreement with care plan. Case discussed with ED attending, Dr. Honeycutt. Undiagnosed new problem with uncertain prognosis? @ -No Drug Therapy requiring intensive monitoring for toxicity (Heparin, Nitro, Insulin, Cardizem)? @ -No Were any procedures done? @ -No Diagnosis/symptom? @ -Abdominal pain Acute, or Chronic, or Acute on Chronic? @ -Acute Uncomplicated (without systemic symptoms) or Complicated (systemic symptoms)? @ -Uncomplicated Side effects of treatment? @ -No Exacerbation, Progression, or Severe Exacerbation? @ -No Poses a threat to life or bodily function? How? (Chest pain, [place], [place], pneumonia, PE, COPD, DKA, ARF, appy, cholecystitis, CVA, Diverticulitis, Homicidal, Suicida l, threat to staff... and all critical care pts) @ -Low - Lab Data Result diagrams: 12/30/24 06:55 12/30/24 06:55 Lab Results 12/30/24 12/30/2425 Range/Units 06:55 06:55 06:55 WBC 7.62 (4.50-10.00) 10*3/uL RBC 4.95 (4.40-5.60) 10*6/uL Hgb 14.8 (13.0-17.0) g/dL Hct 43.0 (39.6-50.0) % MCV 86.9 (80.0-97.0) fL MCH 29.9 (27.0-32.0) pg MCHC 34.4 (32.0-37.0) g/dL Plt Count 217 (140-440) 10*3/uL MPV 10.2 (9.5-12.2) fL Immature Gran % (Auto) 0.3 % Neutrophils % 63.8 % Lymphocytes % 26.2 % Monocytes % 5.4 % Eosinophils % 3.4 % Basophils % 0.9 % Immature Gran # 0.02 (0.00-0.04) 10*3/uL Neutrophils # 4.86 (1.80-7.70) 10*3/uL Lymphocytes # 2.00 (0.90-5.00) 10*3/uL Monocytes # 0.41 (0.20-1.00) 10*3/uL Eosinophils # 0.26 (0.04-0.35) 10*3/uL Basophils # 0.07 (0.00-0.10) 10*3/uL Sodium 141 (137-145) mmol/L Potassium 4.1 (3.5-5.1) mmol/L Chloride 103 (98-107) mmol/L Carbon Dioxide 30 (22-30) mmol/L Anion Gap 8 mmol/L BUN 14 (9-20) mg/dL Creatinine 0.89 (0.66-1.25) mg/dL Est GFR (CKD-EPI)AfAm >90 (>60 ml/min/1.73 sqM) Est GFR (CKD-EPI)NonAf >90 (>60 ml/min/1.73 sqM) Glucose 108 H (74-99) mg/dL Plasma Lactic Acid Vic 1.3 (0.7-2.0) mmol/L Calcium 9.1 (8.4-10.2) mg/dL Total Bilirubin 0.8 (0.2-1.3) mg/dL AST 42 (17-59) U/L ALT 72 H (4-49) U/L Alkaline Phosphatase 88 (38-126) U/L Total Protein 8.0 (6.3-8.2) g/dL Albumin 4.4 (3.5-5.0) g/dL Amylase 49 (30-110) U/L Lipase 113 (23-300) U/L Urine Color Urine Appearance (Clear) Urine pH (5.0-8.0) Ur Specific [place] (1.001-1.035) Urine Protein (Negative) Urine Glucose (UA) (Negative) Urine Ketones (Negative) Urine Blood (Negative) Urine Nitrite (Negative) Urine Bilirubin (Negative) Urine Urobilinogen (<2.0) mg/dL Ur Leukocyte Esterase (Negative) 12/30/24 Range/Units 07:30 WBC (4.50-10.00) 10*3/uL RBC (4.40-5.60) 10*6/uL Hgb (13.0-17.0) g/dL Hct (39.6-50.0) % MCV (80.0-97.0) fL MCH (27.0-32.0) pg MCHC (32.0-37.0) g/dL Plt Count (140-440) 10*3/uL MPV (9.5-12.2) fL Immature Gran % (Auto) % Neutrophils % % Lymphocytes % % Monocytes % % Eosinophils % % Basophils % % Immature Gran # (0.00-0.04) 10*3/uL Neutrophils # (1.80-7.70) 10*3/uL Lymphocytes # (0.90-5.00) 10*3/uL Monocytes # (0.20-1.00) 10*3/uL Eosinophils # (0.04-0.35) 10*3/uL Basophils # (0.00-0.10) 10*3/uL Sodium (137-145) mmol/L Potassium (3.5-5.1) mmol/L Chloride (98-107) mmol/L Carbon Dioxide (22-30) mmol/L Anion Gap mmol/L BUN (9-20) mg/dL Creatinine (0.66-1.25) mg/dL Est GFR (CKD-EPI)AfAm (>60 ml/min/1.73 sqM) Est GFR (CKD-EPI)NonAf (>60 ml/min/1.73 sqM) Glucose (74-99) mg/dL Plasma Lactic Acid Vic (0.7-2.0) mmol/L Calcium (8.4-10.2) mg/dL Total Bilirubin (0.2-1.3) mg/dL AST (17-59) U/L ALT (4-49) U/L Alkaline Phosphatase (38-126) U/L Total Protein (6.3-8.2) g/dL Albumin (3.5-5.0) g/dL Amylase (30-110) U/L Lipase (23-300) U/L Urine Color Colorless Urine Appearance Clear (Clear) Urine pH 6.0 (5.0-8.0) Ur Specific [place] >1.050 H (1.001-1.035) Urine Protein Negative (Negative) Urine Glucose (UA) Negative (Negative) Urine Ketones Negative (Negative) Urine Blood Negative (Negative) Urine Nitrite Negative (Negative) Urine Bilirubin Negative (Negative) Urine Urobilinogen <2.0 (<2.0) mg/dL Ur Leukocyte Esterase Negative (Negative) - EKG Data -: EKG Interpreted by Me EKG Comments: EKG taken at 8: 44 showing sinus rhythm. No ST segment elevations or depressi ons. Inverted T waves lead III. Ventricular rate 75, OK interval 141, QRS duration 117, QT/QTc 397/425 - Radiology Data Radiology results: report reviewed, image reviewed Disposition Clinical Impression: Abdominal pain Disposition: HOME SELF-CARE Condition: Stable Instructions (If sedation given, give patient instructions): Abdominal Pain (ED) Additional Instructions: follow-up with general surgeon for further evaluation of abdominal pain. I also recommend close follow-up with PCP. You may take Zofran every 8 hours as needed for nausea. Return to the ER for any new or worsening concerns. Prescriptions: Ondansetron Odt [Zofran Odt] 4 mg PO Q8HR PRN #10 tab PRN Reason: Nausea Is patient prescribed a controlled substance at d/c from ED?: No Referrals: Fatmata Reed DO [Primary Care Provider] - 1-2 days Adalberto Stanley DO [Doctor of Osteopathic Medicine] - 1-2 days Time of Disposition: 09:07
[2024-12-30] MEDS: ONDANSETRON 4 MG/2 ML VIAL IVP STA (06:50)
[2024-12-30] MEDS: HYDROmorphone 0.5 MG/0.5 ML SYRINGE IVP STA (06:51)
[2024-12-30] MEDS: KETOROLAC 15 MG/ML 1 ML VIAL IVP STA (06:51)
[2024-12-30] MEDS: SODIUM CHLORIDE 0.9% 1,000 ML IV ONE (06:56)
[2024-12-30 07:21] LABS: Basophils # (A) 0.07 10*3/uL (0.00-0.10); Basophils % (A) 0.9 %; Eosinophils # (A) 0.26 10*3/uL (0.04-0.35); Eosinophils % (A) 3.4 %; HGB 14.8 g/dL (13.0-17.0); Lymphocytes % (A) 26.2 %; MCH 29.9 pg (27.0-32.0); MCHC 34.4 g/dL (32.0-37.0); MCV 86.9 fL (80.0-97.0); Mean Platelet Volume 10.2 fL (9.5-12.2); Monocytes # (A) 0.41 10*3/uL (0.20-1.00); Monocytes % (A) 5.4 %; Neutrophils # (A) 4.86 10*3/uL (1.80-7.70); Neutrophils % (A) 63.8 %; Platelet Count 217 10*3/uL (140-440); RBC 4.95 10*6/uL (4.40-5.60); RDW 12.4 % (11.5-14.5); WBC 7.62 10*3/uL (4.50-10.00)
--- NOTE | 2024-12-30 07:45 | CT ---
EXAMINATION TYPE: CT abdomen pelvis w con DATE OF EXAM: 12/30/2024 COMPARISON: Prior CT June 25, 2024 CLINICAL INDICATION: Male, 39 years old with history of ruq abd pain, RUQ PAIN, TECHNIQUE: CT scan of the abdomen and pelvis is performed with IV Contrast, patient injected with 100 mL of Isov ue 300., (none if empty) Oral contrast used: without Oral Contrast (none if empty) CT DLP: 3116.1 mGycm, Automated exposure control for dose reduction was used. FINDINGS: LUNG BASES: No significant abnormality is appreciated. LIVER/GB: No significant abnormality is appreciated. PANCREAS: No significant abnormality is seen. SPLEEN: No significant abnormality is seen. ADRENALS: No significant abnormality is seen. KIDNEYS: Symmetric corticomedullary uptake and excretion without hydronephrosis seen bilaterally. A few subcentimeter hypodense lesions scattered throughout the left kidney are too small to further dileep racterize but presumed benign. Occasional tiny calcified pelvic phlebolith is redemonstrated. BOWEL: Suboptimal evaluation without enteric contrast Surgical changes from gastric sleeve procedure is redemonstrated. No abnormal small or large bowel dilatation. Mild to moderate wall thickening invo lving terminal ileum. PROSTATE/SEMINAL VESICLES: No gross abnormality seen. LYMPH NODES: No greater than 1cm abdominal or pelvic lymph nodes are appreciated. OSSEOUS STRUCTURES: Posterior spur disc complex effacing the thecal sac at L2-L3 and L3-L4 level sagi ttal image 79. OTHER: No significant additional abnormality is seen. IMPRESSION: Mild wall thickening terminal ileum could reflect inflammatory process versus product of poor distention. Otherwise no suspicious new/acute findings seen. [facility], , 12/30/2024 7:42 AM
[2024-12-30 07:56] LABS: ALT 72 U/L (4-49); African American GFR (CKD) >90 (>60 ml/min/1.73 sqM); Albumin 4.4 g/dL (3.5-5.0); Amylase 49 U/L (30-110); Anion Gap 8 mmol/L; Blood Urea Nitrogen 14 mg/dL (9-20); Calcium 9.1 mg/dL (8.4-10.2); Carbon Dioxide 30 mmol/L (22-30); Chloride 103 mmol/L (98-107); Glucose 108 mg/dL (74-99); Lipase 113 U/L (23-300); Non-African American GFR(CKD) >90 (>60 ml/min/1.73 sqM); Sodium 141 mmol/L (137-145); Total Bilirubin 0.8 mg/dL (0.2-1.3)
[2024-12-30] MEDS: HYDROmorphone 1 MG/ML 1 ML SYRINGE IVP STA (07:57)
[2024-12-30 08:19] LABS: AST 42 U/L (17-59); Alkaline Phosphatase 88 U/L (38-126); Potassium 4.1 mmol/L (3.5-5.1)
[2024-12-30 08:27] LABS: Appearance,Urine Clear (Clear); Bilirubin,Urine Negative (Negative); Blood,Urine Negative (Negative); Color,Urine Colorless; Glucose,Urine (UA) Negative (Negative); Ketones,Urine Negative (Negative); Leukocyte Esterase,Urine Negative (Negative); Nitrite,Urine Negative (Negative); Protein,Urine Negative (Negative); Urobilinogen,Urine <2.0 mg/dL (<2.0)
[2024-12-30 08:40] LABS: Specific Gravity,Urine >1.050 (1.001-1.035)
[2024-12-30] MEDS: PANTOPRAZOLE 40 MG/10 ML VIAL IVP STA (09:14)
[2024-12-30 09:18] VITALS: BP 142/86; PULSE 86
== END 2024-12-30 09:17 | disposition home or self-care (01) ==
LOC: EC 06:06
DX: R10.11 Right upper quadrant pain (principal); Z88.0 Allergy status to penicillin
CPT/HCPCS: 36415; 93005; 80053; 82150; 83605; 83690; 85025; 81003; 74177; 99284; 96374; 96375; 96376; 96361; J2405; J1171 ×2; J1885; Q9967; J2470

== ENCOUNTER → 2025-01-14 | Outpatient (CLI) | payer OTHER ==
[2025-01-14 08:48] VITALS: BP 168/82; PULSE 67; RESP 16; TEMP 97.1
--- NOTE | 2025-01-16 10:51 | P.PAINPG ---
Objective - Vital Signs Vital signs: Intake & Output 01/13/25 01/14/25 01/14/25 18:59 06:59 18:59 Weight 147.418 kg PQRS Measure Charge Sheet Comment: HISTORY OF PRESENT ILLNESS: A 39 yr old male w at side presents today w severe and chronic LBP x 2 yr secondary to radiculopathy, spondylosis and facet arthropathy without myelopathy for evaluation s/p KRIS L3-L4 #2. Pt states he experienced 50% pain relief x 1 mo s/p procedure. Pt states pain level is provoked at 5-7 /10 in intensity, constant, localized in the lumbar spine, predominantly axial, achy in character w occasional shooting pain towards the Lhip and L knee. Pain is provoked by bending, lifting. Pain is alleviated by PT x 6 wks which ended in 2022, physician guided home exercises daily since 2022, chiropractic treatments monthly since 2021 which he is currently in, heat/ ice, medications , repositioning and rest . Inteventional procedures include KRIS L3-L4 x1 Medications include [place], Neurontin REVIEW OF ORGAN SYSTEMS: CONSTITUTIONAL: No fevers or chills. No recent weight loss. NEUROLOGICAL: + numbness and tingling along the distal extremities. No seizure disorders or headaches. MUSCULOSKELETAL: + pain PSYCHIATRIC: Denies current depression or suicidal thoughts. Physical Examinations : Constitutional : Cooperative , not in acute distress . Neurologic : Cranial nerve II to XII intact. No focal neurological deficits. Psychiatric : alert & oriented x 3. Matching mood & appropriate affect. Judgment & insight intact. Musculoskeletal : Cervical Spine Motor strength in the deltoid and biceps: Normal right side. Normal Left side Motor strength biceps and the wrist extensors: Normal right side . Normal left side Motor strength in the triceps muscle: Normal right side. Normal left side Deep tendon reflexes: Normal at the biceps. Normal at Brachioradialis. Normal at triceps Vertebral body tenderness to deep palpation over Cervical facet loading test: positive bilaterally Spurling test: positive bilaterally Neck distraction test: positive bilaterally Manuel sign: positive bilaterally Lumbar spine Motor strength lower extremities ,thigh and legs 5/5 Right side , 5/5 Left side Deep tendon reflexes : Normal Knee Jerk. Normal Ankle Jerk Vertebral body tenderness over L4 Reyes Test positive L L3-L4/ L4-L5 Lumbar facet Loading Test: positive Right / positive Left Range of motion of the lumbar spine Flexion 30 degrees, extension 10 degrees Straight Leg Raise test: Left/ Right positive at degrees Jesi test: positive right / positive left. Severe tenderness over the Sacroiliac joint on the Right / Left sides Gaenslen test: positive bilaterally Seated flexion test: positive bilaterally. Sacral spine : Severe tenderness over the Sacroiliac joint: right side / left side Range of motion: Flexion of the lumbar spine <60 degrees Range of motion: Extension of the lumbar spine <20 degrees Gaenslen's Test positive Jesi test: positive right side / left side Thigh Thrust Test Sacral Thrust Test Imaging: MRI non contrast from 07/13/24 reviewed Assessment/ Plan : L3-L4 radiculopathy, multi disc radiculopathy Recommendation of L TFESI L3-L4/ L4-L5 #1. Risks, benefits of procedure discussed and patient verbalized understanding. Minimal anesthesia including Fentanyl and Versed if clinically indicated. All questions answered. I have spent greater than 30 minutes on patient care today. Dr Srivastava was available by phone for the evaluation of this patient. The time was used to review the medical records including relevant urine studies and Prescription history (MAPs), review of the available imaging, evaluation and examination of the patient, coordination of care with the medical staff and if applicable referring physicians, as well as creation of the medical record - Pain Location Bilateral Lower Back Non-Pharmacological Interventions: Chiropractic Treatment, Home Exercise, Inactivity, Position/Reposition, Stretching Pharmacological Interventions: Epidural, PRN Medication, Scheduled Medication, Topical Medication PQRS Narrative: Smoking Status Never smoker Hx Alcohol Use (MH) No Home Medications: Ambulatory Orders Gabapentin [Neurontin] 300 mg PO BID 09/26/24 ARIPiprazole [Abilify] 5 mg PO DAILY 10/17/24 Baclofen 5 mg PO DIRECTED PRN 12/11/24 HYDROcodone/APAP 7.5-325MG [[place] 7.5-325] 1 tab PO Q6HR PRN 12/11/24 Ondansetron Odt [Zofran Odt] 4 mg PO Q8HR PRN #10 tab 12/30/24 lisinopriL [Prinivil] 20 mg PO DAILY 01/14/25 Controlled Substance Measures - Controlled Substance Measures Is patient prescribed a controlled substance at discharge?: No
== END ==
LOC: PNWHC3 08:17
PROVIDERS: ATTEND Specialist
DX: M47.26 Other spondylosis with radiculopathy, lumbar region (principal); Z88.0 Allergy status to penicillin
CPT/HCPCS: 99211

== ENCOUNTER 2025-02-08 06:15 | Day surgery (SDC) | payer OTHER ==
[2025-02-08 06:53] VITALS: TEMP 96.4
[2025-02-08] MEDS ORDERED: IOPAMIDOL M300 15ML VIAL ONE (07:06)
[2025-02-08] MEDS ORDERED: DEXAMETHASONE SOD PHOSPHATE 10 MG/ML 1 ML VIAL ONE (07:06)
--- NOTE | 2025-02-08 07:45 | P.PCN ---
Description of Procedure: PREOPERATIVE DIAGNOSIS: 1-Lumbar radiculopathy . 2-lumbar degenerative disc disease. 3-lumbar spondylosis with lumbar facet arthropathy without myelopathy POSTOPERATIVE DIAGNOSIS: 1-lumbar radiculopathy. 2-lumbar degenerative disc disease. 3-lumbar spondylosis with facet arthropathy without myelopathy PROCEDURE 1. Transforaminal epidural steroid injection under fluoroscopic guidance at LEFT L3-4 and L4-5 level. (Fluoroscopy images stored on file in the radiology Department ) 2. Lumbar epidurogram . ANESTHESIA: Local with 1% lidocaine 5 ml. subcutaneously. Continuous pulse ox, EKG, blood pressure and verbal communication was maintained with the patient. EBL: Minimal PROCEDURE INDICATION: The patient with low back pain and radiculopathy symptoms unresponsive to conservative treatment. The patient was seen and identified in the preoperative area. Risks, benefits, complications, and alternatives were discussed with the patient. The patient agreed to proceed with the procedure and signed the consent. IV was started, and vital signs were stable. If today's injection does not give any significant improvement, may need to consider surgical consultation. If this injection gives significant improvement then may consider repeat the same procedure. Discussed with the patient. PROCEDURE DESCRIPTION / TECHNIQUE: After getting consent, patient was taken to the OR and time out was completed. The patient was placed in the prone position on procedure table and a pillow was placed under the abdomen to reduce lumbar lordosis. The lumbosacral area was prepped and draped in the usual sterile fashion. Critical pause was taken. After injecting 5 mL of plain 1% lidocaine subcutaneously, under oblique view of the fluoroscope, a 22-gauge spinal needle was introduced under the tunnel view of the fluoroscope on the LEFT side L3-4 and the needle was advanced so that the tip of the needle was at the posterior inferior quadrant of the intervertebral foramen at the lateral view of the fluoroscope and in the lateral third of the facet column in the AP view of the fluoroscope. Negative CSF, negative blood, negative paresthesia. After needle position confirmation by AP and cross table lateral view, 3 mL of Isovue-M 200 contrast was injected under continuous fluoroscope. No contrast was noted in the intrathecal or intravascular space. The epidurogram was noted. Again after repeated negative aspiration 2.5 mL solution was injected which consists 1 mL of normal saline mixed with 1.5 mL of 15 mg dexamethasone. Needle was removed . Same procedure was repeated at the LEFT side L4-5 at level , using contrast under continuous fluoroscopy and using same amount of dexamethasone. At the end of the procedure, skin was cleansed, and bandages were applied. DISPOSITION / PLANS: No complication. The patient tolerated the procedure well. The patient was placed in a supine position and transferred to the recovery area in a stable condition for observation. There was no evidence of lower extremity motor or sensory deficit after the procedure. Patient was discharged from the recovery room after meeting discharge criteria. Home discharge instructions were given to the patient by the staff. The patient was reexamined prior to discharge.
--- NOTE | 2025-02-08 07:55 | FL ---
Fluoroscopy INDICATION: Pain FINDINGS: Fluoroscopy time: 73.1 seconds. Total dose area product (DAP) in uGy*m?, mGy*cm? (or similar): 0.07315 Images obtained: 4. Images document [place] directed towards the lumbar spine IMPRESSION: 1. Documentation of fluoroscopy. [facility], , 02/08/2025 7:53 AM
[2025-02-08 08:05] VITALS: BP 137/84; PULSE 71; RESP 16
== END 2025-02-08 08:16 | disposition home or self-care (01) ==
LOC: ORPAIN 06:15
PROVIDERS: ATTEND Pain Medicine Interventional Pain Medicine
DX: M47.26 Other spondylosis with radiculopathy, lumbar region (principal); M51.16 Intervertebral disc disorders with radiculopathy, lumbar region; Z88.0 Allergy status to penicillin; Z79.899 Other long term (current) drug therapy
CPT/HCPCS: 64483; 64484; J1100; Q9967

== ENCOUNTER → 2025-02-27 | Outpatient (CLI) | payer OTHER ==
[2025-02-27 09:24] VITALS: BP 154/101; PULSE 69; RESP 18
--- NOTE | 2025-02-27 16:10 | P.PAINPG ---
Objective - Vital Signs Vital signs: Vital Signs Temp Pulse 69 02/27/25 09:19 Resp 18 02/27/25 09:19 BP 154/101 02/27/25 09:19 Pulse Ox 97 02/27/25 09:19 FiO2 Intake & Output 02/26/25 02/27/25 02/27/25 18:59 06:59 18:59 Weight 154.221 kg PQRS Measure Charge Sheet Mode of Arrival: Ambulatory Comment: HISTORY OF PRESENT ILLNESS: A 39 yr old male w at side presents today w severe and chronic LBP x 2 yr secondary to radiculopathy, spondylosis and facet arthropathy without myelopathy for evaluation s/p L TFESI L3-L4/ L4-L5 #1. Pt states he experienced 50% pain relief x 2 wks s/p procedure. Pt states pain level is provoked at 4-6 /10 in intensity, constant, localized in the lumbar spine, predominantly axial, achy in character w occasional shooting pain. Pain is provoked by bending, lifting. Pain is alleviated by PT x 6 wks which ended in 2022, physician guided home exercises daily since 2022, chiropractic treatments monthly since 2021 which he is currently in, heat/ ice, medications , repositioning and rest . Inteventional procedures include KRIS L3-L4 x2, L TFESI L3-L4/ L4-L5 x1 (02/20) Medications include [place], Neurontin REVIEW OF ORGAN SYSTEMS: CONSTITUTIONAL: No fevers or chills. No recent weight loss. NEUROLOGICAL: + numbness and tingling along the distal extremities. No seizure disorders or headaches. MUSCULOSKELETAL: + pain PSYCHIATRIC: Denies current depression or suicidal thoughts. Physical Examinations : Constitutional : Cooperative , not in acute distress . Neurologic : Cranial nerve II to XII intact. No focal neurological deficits. Psychiatric : alert & oriented x 3. Matching mood & appropriate affect. Judgment & insight intact. Musculoskeletal : Cervical Spine Motor strength in the deltoid and biceps: Normal right side. Normal Left side Motor strength biceps and the wrist extensors: Normal right side . Normal left side Motor strength in the triceps muscle: Normal right side. Normal left side Deep tendon reflexes: Normal at the biceps. Normal at Brachioradialis. Normal at triceps Vertebral body tenderness to deep palpation over Cervical facet loading test: positive bilaterally Spurling test: positive bilaterally Neck distraction test: positive bilaterally Manuel sign: positive bilaterally Lumbar spine Motor strength lower extremities ,thigh and legs 5/5 Right side , 5/5 Left side Deep tendon reflexes : Normal Knee Jerk. Normal Ankle Jerk Vertebral body tenderness over L4 Reyes Test positive L L3-L4/ L4-L5 Lumbar facet Loading Test: positive Right / positive Left Range of motion of the lumbar spine Flexion 30 degrees, extension 10 degrees Straight Leg Raise test: Left/ Right positive at degrees Jesi test: positive right / positive left. Severe tenderness over the Sacroiliac joint on the Right / Left sides Gaenslen test: positive bilaterally Seated flexion test: positive bilaterally. Sacral spine : Severe tenderness over the Sacroiliac joint: right side / left side Range of motion: Flexion of the lumbar spine <60 degrees Range of motion: Extension of the lumbar spine <20 degrees Gaenslen's Test positive Jesi test: positive right side / left side Thigh Thrust Test Sacral Thrust Test Imaging: MRI non contrast lumbar spine from 07/13/24 reviewed Assessment/ Plan : L3-L4 radiculopathy, multi disc radiculopathy Recommendation of L paramedian KRIS L3-L4 #4. Risks, benefits of procedure discussed and patient verbalized understanding. Minimal anesthesia including Fentanyl and Versed if clinically indicated. Would benefit from a consultation w Dr Powers at [facility] for possible SCS Trial as other minimally invasive methods are bringing short term pain relief. Pt is trying to avoid surgery. All questions answered. I have spent greater than 30 minutes on patient care today. Dr Srivastava was available by phone for the evaluation of this patient. The time was used to review the medical records including relevant urine studies and Prescription history (MAPs), review of the available imaging, evaluation and examination of the patient, coordination of care with the medical staff and if applicable referring physicians, as well as creation of the medical record - Pain Location Lower Back Non-Pharmacological Interventions: Heat Pharmacological Interventions: Medication PQRS Narrative: Smoking Status Never smoker Blood Pressure 154/101 Pain Intensity [Lower Back] 4 Scale Used Numeric (1 - 10) Hx Alcohol Use (MH) Yes Home Medications: Ambulatory Orders Gabapentin [Neurontin] 300 mg PO DAILY 09/26/24 ARIPiprazole [Abilify] 5 mg PO DAILY 10/17/24 HYDROcodone/APAP 7.5-325MG [[place] 7.5-325] 1 tab PO Q6HR PRN 12/11/24 lisinopriL [Prinivil] 20 mg PO HS 01/14/25 Cyclobenzaprine [Flexeril] 5 mg PO BID PRN 02/06/25 diazePAM [Valium] 10 mg PO DAILY 1 Days #1 tab 02/06/25 Controlled Substance Measures - Controlled Substance Measures Is patient prescribed a controlled substance at discharge?: Yes When asked, does pt state using other controlled substances?: No If prescribed controlled substance>3 days was MAPS reviewed?: Prescribed <3 Days
== END ==
LOC: PNWHC3 09:02
PROVIDERS: ATTEND Specialist
DX: M47.26 Other spondylosis with radiculopathy, lumbar region (principal); M51.369 Other intervertebral disc degeneration, lumbar region without mention of lumbar back pain or lower extremity pain; Z88.0 Allergy status to penicillin
CPT/HCPCS: 99212